=== PATIENT | male | born 1975 | race Caucasian/White ===

== ENCOUNTER 2019-12-13 23:10 | Emergency (ER) | payer SELFPAY ==
[2019-12-13 23:11] VITALS: BP 140/84; PULSE 71; RESP 16; TEMP 36.7; O2SAT 100
--- NOTE | 2019-12-13 23:27 | ED.NAVMDI ---
HPI - Nausea/Vomiting/Diarrhea General Chief complaint: Nausea/Vomiting/Diarrhea Stated complaint: abd pain/vomiting Time Seen by Provider: 12/13/19 23:11 Source: patient and RN notes reviewed Mode of arrival: EMS Limitations: no limitations History of Present Illness HPI Narrative: Pt is a 44 y/o male who presents to the ED, via EMS from home, with c/o nausea and vomiting that began at 6:30 PM after dinner. Pt denies drinking EtOH at dinner tonight. He notes that he had some Gatorade and some coconut water. He states that he drink EtOH at 2 PM. Pt denies his sx being caused by EtOH. Pt reports vomiting 3 table spoons of bright red blood during one of his episodes. Pt notes that the following episodes streaked of blood before returning back to a brown color. Pt reports 10/10 constant epigastric ABD pain, but denies a fever, chills, diaphoresis, diarrhea, dysuria, and urinary retention. MD elicited complaint: nausea and vomiting Pertinent past history: alcohol abuse Onset (ago): hour(s) (5) Description of vomiting: blood-streaked (for a few episodes), bloody (for one episode) and other (brown in color) Associated nausea: Yes Associated abdominal pain: Yes Location of pain: epigastric Pain consistency: constant Severity: severe Pain scale (0-10): 10 Relieving factors: none Associated symptoms: denies other symptoms Treatment prior to arrival: none Related Data Allergies Allergy/AdvReac Type Severity Reaction Status Date / Time acetaminophen Allergy Unknown ITCHING Verified 12/13/19 23:17 ALL OVER hydrocodone Allergy Unknown ITCHING Verified 12/13/19 23:17 ALL OVER Review of Systems Review of Systems: All systems reviewed & are unremarkable except as noted in HPI and below Constitutional: Constitutional: Denies chills and Denies fever(s) Cardiovascular: Cardiovascular: Denies other (diaphoresis) Gastrointestinal: Gastrointestinal: Reports abdominal pain (epigastric), Denies diarrhea, Reports nausea, Reports vomiting and Reports hematemesis (for one episode of emesis) Genitourinary: Genitourinary: Denies dysuria and Denies other (urinary retention) PMFSH Past Medical History Medical History (Updated 12/14/19 @ 00:48 by Rocco Alexander MD) Anxiety Surgical History Surgical History (Updated 09/28/19 @ 21:54 by Cassandra Medina) Hx of appendectomy Social History Social History (Updated 12/14/19 @ 00:07 by Cassandra Medina) Smoking status: Smoker, status unknown Alcohol intake: current Alcohol use details: Pt has a hx of EtOH abuse. Substance use: current Substance use type: marijuana Last use: 09/28/19 Gender identity (if verbalized by the patient): Male Exam Const: General: well developed, alert, in distress moderate and uncomfortable Orientation/consciousness: patient oriented x3 HENMT: Head: normocephalic and atraumatic Ears: external ears normal General nose exam: Normal external nose present Mouth: Yes oropharynx normal and Yes moist mucous membranes Resp: Effort & Inspection: normal respiratory effort and able to speak in complete sentences Auscultation: clear to auscultation bilaterally Cardio: Rate: regular rate Rhythm: regular rhythm Heart sounds: no murmurs GI: GI Palp: Yes Soft to palpation, No Tenderness to palpation present (GI) and No Guarding due to palpation present (GI) Skin: General skin exam: normal color and no rashes or lesions noted Trauma: no lacerations or abrasions Wounds: no wounds Neuro: General: patient oriented x3 Speech: normal speech Extrem: General: normal to inspection and no clubbing, cyanosis or edema Course Course Emergency Course: Patient very belligerent while in the ER. He tore out multiple IVs. He would continue to wash himself in the sink when we would ask him to lay in a bed. Patient was resistant to following any nursing or physician directions. Patient was having dry heaving and discussed that the treatment would initially be
[2019-12-13] MEDS: SODIUM CHLORIDE 0.9% IV 1,000 ML 999 ML IV CONT (23:34)
[2019-12-13] MEDS: ONDANSETRON INJ 4 MG/2 ML VIAL IV PUSH (23:34)
[2019-12-13] MEDS: PANTOPRAZOLE SODIUM IV 40 MG VIAL IV PUSH (23:34)
[2019-12-13 23:35] LABS: Basophils Absolute Auto 0.1 K/mm3 (0.0-0.1); Basophils Percent Auto 0.4 % (0.2-1.2); Eosinophils Absolute Auto 0.2 K/mm3 (0-0.3); Eosinophils Percent Auto 1.2 % (0-4.4); Hematocrit 43.6 % (42.0-52.0); Hemoglobin 15.1 g/dL (14.0-18.0); Immature Granulocyte Absolute 0.09 K/mm3 (0.00-0.031); Immature Granulocyte Percent A 0.5 % (0-0.5); Lymphocytes Absolute Auto 1.34 K/mm3 (0.9-3.2); Mean Corpuscular HGB Conc 34.6 g/dl (32-36); Mean Corpuscular Hemoglobin 32.2 pg (26-34); Mean Platelet Volume 8.8 fl (7.4-10.4); Monocytes Absolute Auto 0.6 K/mm3 (0.1-0.6); Monocytes Percent Auto 3.6 % (2.6-8.5); Neutrophils Absolute Auto 14.5 K/mm3 (1.3-6.7); Neutrophils Percent Auto 86.3 % (45.5-73.1); Platelet Count Result 248 k/mm3 (150-375); Red Blood Count 4.69 M/mm3 (4.6-6.20); Red Cell Distribution Width 12.7 % (11.5-14.5); White Blood Count 16.8 K/mm3 (4.5-10.0)
[2019-12-13 23:44] LABS: Ethanol 79 mg/dL (<10)
[2019-12-13 23:48] LABS: Alanine Aminotransferase 16 U/L (4-50); Alkaline Phosphatase 72 U/L (38-126); Aspartate Amino Transferase 23 U/L (17-59); Bilirubin,Total 0.6 mg/dL (0.2-1.3); Blood Urea Nitrogen 15 mg/dL (9-20); Calcium 10.1 mg/dL (8.4-10.2); Carbon Dioxide 19 mmol/L (22-30); Chloride 103 mmol/L (98-107); Estimated CRCL calculation 155 ml/min; Estimated Glomerular Filt Rate > 60; Glucose 126 mg/dL (75-110); Lipase 194 U/L (23-300); Potassium 3.6 mmol/L (3.4-5.0); Sodium 142 mmol/L (137-145)
--- NOTE | 2019-12-14 00:08 | PC.NURSE ---
Patient continuously walking out of room stating, you guys have to help me, this pain is too bad I need pain meds. ELAINA Alexander is notified.
[2019-12-14 00:10] LABS: Add Urine Microscopic? YES; Appearance Urine Clear (Clear); Bilirubin Urine Negative (Negative); Blood Urine Negative (Negative); Color Urine Yellow (Yellow); Glucose Urine UA Negative (Negative); Ketones Urine 1+ mg/dL (Negative); Leukocyte Esterase Ur Negative LEU/UL (Negative); Mucus Urine Rare /lpf; Nitrate Urine Negative (Negative); Protein Urine 1+ mg/dL (Negative); RBC Urine 0-2 /hpf (0-2); Specific Grav Ur 1.018 (1.001-1.035); Squamous Epithelial Cell Urine Rare /hpf (Few); Urobilinogen Urine Negative mg/dL (<2.0); WBC Urine 0-3 /hpf
[2019-12-14] MEDS: HALOPERIDOL LACTATE 5 MG/ML VIAL IV PUSH (00:10)
--- NOTE | 2019-12-14 00:33 | PC.NURSE ---
Pt belligerent towards staff stating, I need pain medications or something or my anxiety. While in room, patient pouring sink water over himself stating it makes me feel better and I need you to give me a shower.
--- NOTE | 2019-12-14 00:45 | PC.NURSE ---
Patient approached nurses station to speak to ELAINA Alexander. Pt expressed concern to ELAINA Alexander that I need pain meds or something for my anxiety I just can't do this anymore. ELAINA Alexander privately discussed patient's lab results and other treatment with him. ELAINA Alexander stated that he would not be giving patient narcotic pain medications. While patient was in room, patient removed second IV, stating, I am going to another hospital, you guys don't fucking care about me. I am going across the street to call an ambulance or have my parents take me to another hospital because you guys don't give a shit about me. Unable to redirect patient at this time and patient refused to have this or any other RN place gauze over patient's d/c IV. Pt stated no I am leaving, I have my jacket to wrap my hand you guys aren't covering it for me. Patient was offered to sign AMA papers, but refused, and exited the ED in a steady gait and with jacket covering left hand to control bleeding.
== END 2019-12-14 01:05 | disposition left against medical advice (07) ==
PROVIDERS: Emergency Provider Emergency Medicine
DX: K29.00 Acute gastritis without bleeding (principal); R11.2 Nausea with vomiting, unspecified
CPT/HCPCS: 36415; 80053; 80307; 81001; 83690; 85025; 96361; 96374; 96375; 99284; C9113; J1630; J2405; J7030

== ENCOUNTER 2020-06-21 21:44 | Emergency (ER) | payer OTHER, SELFPAY ==
[2020-06-21 21:50] VITALS: BP 131/82; PULSE 88; RESP 18; TEMP 36.8; O2SAT 98
--- NOTE | 2020-06-21 22:11 | ED.AMS ---
HPI - Altered Mental Status General Chief Complaint: Altered Mental Status Stated Complaint: combative Time Seen by Provider: 06/21/20 22:10 History of Present Illness HPI narrative: FOund wandering in the street with no pants on. Combative. Suspected of intoxication. EMS attempted transport. He tried to open the ambulance doors while they were moving. He was given 4 mg of versed for sedation. On arrivla to the ED he is calmed slightly. He is still not helpful with the history. He is familiar to several of the nursing staff. They say that he has presented similarly in the past due to intoxication. Related Data Allergies Allergy/AdvReac Type Severity Reaction Status Date / Time acetaminophen Allergy Unknown ITCHING Verified 12/13/19 23:17 ALL OVER hydrocodone Allergy Unknown ITCHING Verified 12/13/19 23:17 ALL OVER Review of Systems Review of Systems: ROS unobtainable: Yes unobtainable due to mental status PMFSH Past Medical History Medical History Anxiety Surgical History Surgical History Hx of appendectomy Social History Social History Smoking status: Smoker, status unknown Alcohol intake: current Substance use: current Substance use type: marijuana Last use: 09/28/19 Gender identity (if verbalized by the patient): Male Exam Const: General: confusion Other: Combative HENMT: Head: normal to inspection Eyes: Pupils: Equal, round and reactive pupils present Resp: Effort & Inspection: normal respiratory effort Auscultation: clear to auscultation bilaterally Cardio: Rate: tachycardic Rhythm: regular rhythm GI: Inspection: non-distended GI Palp: Yes Soft to palpation Skin: General skin exam: normal color Other: diaphoretic Neuro: General: moves all extremities Cranial nerves: Yes Nystagmus present horizontal Speech: Abnormal speech present slurred Extrem: General: normal to inspection Psych: Appearance: disheveled Course Vital Signs Vital signs: Vital Signs Temperature 36.8 C 06/21/20 21:50 Pulse Rate 88 06/21/20 21:50 Respiratory Rate 18 06/21/20 21:50 Blood Pressure 131/82 06/21/20 21:50 Pulse Oximetry 98 06/21/20 21:50 Temperature 36.7 C 06/22/20 01:17 Pulse Rate 91 06/22/20 01:17 Respiratory Rate 20 06/22/20 01:17 Blood Pressure 135/76 06/22/20 01:17 Pulse Oximetry 99 06/22/20 01:17 MDM - Altered Mental Status MDM Narrative Medical decision making narrative: Ethanol likely not high enough to explain behavior. Apparently he did admit to the nurse that he smoke something as well. Mental status back t baseline. Stable gait prior to discharge. Differential Diagnosis Differential diagnosis: Likely alcoholic intoxication, delirium and hypoglycemia Medical Records Attestation: I reviewed the patient's medical records. Lab Data Attestation: I reviewed the patient's lab results. Result diagrams: 06/21/20 22:07 06/21/20 22:07 Labs: Lab Results 06/21/20 06/21/20 06/21/20 Range/Units 22:07 22:07 22:07 WBC 10.4 H (4.5-10.0) K/mm3 RBC 4.95 (4.6-6.20) M/mm3 Hgb 15.3 (14.0-18.0) g/dL Hct 45.4 (42.0-52.0) % MCV 91.7 (80-100) fl MCH 30.9 (26-34) pg MCHC 33.7 (32-36) g/dl RDW 13.2 (11.5-14.5) % Plt Count 280 (150-375) k/mm3 MPV 8.3 (7.4-10.4) fl Immature Gran % (Auto) 0.6 H (0-0.5) % Neut % (Auto) 76.1 H (45.5-73.1) % Lymph % (Auto) 15.8 L (18.3-44.2) % [place] % (Auto) 3.8 (2.6-8.5) % Eos % (Auto) 2.9 (0-4.4) % Baso % (Auto) 0.8 (0.2-1.2) % Lymph # (Auto) 1.64 (0.9-3.2) K/mm3 [place] # (Auto) 0.4 (0.1-0.6) K/mm3 Eos # (Auto) 0.3 (0-0.3) K/mm3 Baso # (Auto) 0.1 (0.0-0.1) K/mm3 Abs Immat Gran (auto) 0.06 H (0.00-0.031) K/mm3 Absolute Neuts
[2020-06-21 22:15] LABS: Basophils Absolute Auto 0.1 K/mm3 (0.0-0.1); Basophils Percent Auto 0.8 % (0.2-1.2); Eosinophils Absolute Auto 0.3 K/mm3 (0-0.3); Eosinophils Percent Auto 2.9 % (0-4.4); Hematocrit 45.4 % (42.0-52.0); Hemoglobin 15.3 g/dL (14.0-18.0); Immature Granulocyte Absolute 0.06 K/mm3 (0.00-0.031); Immature Granulocyte Percent A 0.6 % (0-0.5); Lymphocytes Absolute Auto 1.64 K/mm3 (0.9-3.2); Lymphocytes Percent Auto 15.8 % (18.3-44.2); Mean Corpuscular HGB Conc 33.7 g/dl (32-36); Mean Corpuscular Hemoglobin 30.9 pg (26-34); Mean Corpuscular Volume 91.7 fl (80-100); Mean Platelet Volume 8.3 fl (7.4-10.4); Monocytes Absolute Auto 0.4 K/mm3 (0.1-0.6); Monocytes Percent Auto 3.8 % (2.6-8.5); Neutrophils Absolute Auto 7.9 K/mm3 (1.3-6.7); Neutrophils Percent Auto 76.1 % (45.5-73.1); Platelet Count Result 280 k/mm3 (150-375); Red Blood Count 4.95 M/mm3 (4.6-6.20); Red Cell Distribution Width 13.2 % (11.5-14.5); White Blood Count 10.4 K/mm3 (4.5-10.0)
--- NOTE | 2020-06-21 22:17 | PC.NURSE ---
Seizure pads placed on side rails due to patient purposefully, violently hitting the back of his head on the side rail. Attempted to calm and re-direct patient with little success. notified
[2020-06-21] MEDS: HALOPERIDOL LACTATE 5 MG/ML VIAL IV PUSH (22:21)
[2020-06-21 22:24] LABS: Alanine Aminotransferase 12 U/L (4-50); Alkaline Phosphatase 97 U/L (38-126); Anion Gap 20.9 mmol/L (7-16); Aspartate Amino Transferase 24 U/L (17-59); Bilirubin,Total 0.6 mg/dL (0.2-1.3); Blood Urea Nitrogen 11 mg/dL (9-20); Calcium 9.3 mg/dL (8.4-10.2); Carbon Dioxide 21 mmol/L (22-30); Chloride 106 mmol/L (98-107); Estimated CRCL calculation 150 ml/min; Estimated Glomerular Filt Rate > 60; Glucose 130 mg/dL (75-110); Potassium 3.9 mmol/L (3.4-5.0); Sodium 144 mmol/L (137-145)
[2020-06-21 22:48] LABS: Amphetamine Screen Urine Negative (Negative); Barbiturate Screen Urine Negative (Negative); Benzodiazepines Screen Urine Positive (Negative); Cannabinoid Screen Urine Positive (Negative); Cocaine Screen Urine Negative (Negative); Methadone Screen Urine Negative (Negative); Opiate Screen Urine Negative (Negative); Phencyclidine Screen Urine Negative (Negative)
--- NOTE | 2020-06-21 23:09 | PC.NURSE ---
pt calm at this time, no resp distress. given icewater and blanket.
[2020-06-21 23:10] VITALS: BP 128/86; PULSE 84; RESP 16; O2SAT 98
[2020-06-21 23:21] LABS: Thyroid Stimulating Hormone 0.191 uIU/mL (0.465-4.680)
--- NOTE | 2020-06-21 23:38 | PC.NURSE ---
pt up ambulating to rest room, no distress, pt calm.
--- NOTE | 2020-06-22 00:18 | PC.NURSE ---
Margi in lab aware of Ethanol level add on.
[2020-06-22 00:39] LABS: Ethanol 139 mg/dL (<10)
[2020-06-22 01:17] VITALS: BP 135/76; PULSE 91; RESP 20; TEMP 36.7; O2SAT 99
== END 2020-06-22 01:17 | disposition home or self-care (01) ==
PROVIDERS: Emergency Provider Emergency Medicine
DX: F10.121 Alcohol abuse with intoxication delirium (principal); Y90.6 Blood alcohol level of 120-199 mg/100 ml
CPT/HCPCS: 36415; 51701; 80053; 80307; 84443; 85025; 96374; 96375; 99284; J1630; J2060

== ENCOUNTER 2021-02-28 01:11 | Emergency (ER) | payer OTHER, SELFPAY ==
[2021-02-28] VITALS (14 sets, daily range): BP systolic 110–180; BP diastolic 47–82; PULSE 70–83; RESP 15–31; O2SAT 95–100
--- NOTE | 2021-02-28 01:13 | PC.NURSE ---
Code purple called shortly after arriving to ED, patient in room acting belligerent, uncooperative, and aggressive towards PD and EMS.
[2021-02-28] MEDS: LORazepam INJ (*CRX) 2 MG/ML VIAL IM ×2 (01:15→01:33)
--- NOTE | 2021-02-28 01:15 | PC.NURSE ---
[facility] ERP [place] to administer 50 mg benadryl, 2 mg ativan, and 5 mg haloperidol. 0115 Benadryl administered IM R deltoid 0116 Ativan administered IM L deltoid 0117 Haloperidol administered IM R ventrogluteal
[2021-02-28 02:29] LABS: Basophils Percent Auto 0.4 % (0.2-1.2); Eosinophils Absolute Auto 0.1 K/mm3 (0-0.3); Hematocrit 38.5 % (42.0-52.0); Hemoglobin 13.2 g/dL (14.0-18.0); Immature Granulocyte Absolute 0.04 K/mm3 (0.00-0.031); Immature Granulocyte Percent A 0.4 % (0-0.5); Lymphocytes Absolute Auto 1.12 K/mm3 (0.9-3.2); Mean Corpuscular HGB Conc 34.3 g/dl (32-36); Mean Corpuscular Volume 93.4 fl (80-100); Mean Platelet Volume 8.5 fl (7.4-10.4); Monocytes Absolute Auto 0.4 K/mm3 (0.1-0.6); Monocytes Percent Auto 3.1 % (2.6-8.5); Neutrophils Absolute Auto 9.6 K/mm3 (1.3-6.7); Neutrophils Percent Auto 85.1 % (45.5-73.1); Platelet Count Result 200 k/mm3 (150-375); Red Blood Count 4.12 M/mm3 (4.6-6.20); Red Cell Distribution Width 12.9 % (11.5-14.5); White Blood Count 11.2 K/mm3 (4.5-10.0)
[2021-02-28 02:34] LABS: Alanine Aminotransferase 12 U/L (4-50); Albumin Level 4.5 g/dL (3.5-5.1); Alkaline Phosphatase 77 U/L (38-126); Anion Gap 11 mmol/L (8-16); Aspartate Amino Transferase 27 U/L (17-59); Bilirubin,Total 0.3 mg/dL (0.2-1.3); Blood Urea Nitrogen 13 mg/dL (9-20); Calcium 8.3 mg/dL (8.4-10.2); Carbon Dioxide 22 mmol/L (22-30); Chloride 108 mmol/L (98-107); Estimated Glomerular Filt Rate > 60; Glucose 108 mg/dL (75-110); Potassium 3.9 mmol/L (3.4-5.0); Sodium 141 mmol/L (137-145)
--- NOTE | 2021-02-28 02:34 | PC.NURSE ---
Patient moved to room 14 and placed on bed alarm for closer observation for fall prevention.
--- NOTE | 2021-02-28 02:41 | PC.NURSE ---
Patient attempting to urinate again.
[2021-02-28 02:43] LABS: Acetaminophen < 10 ug/mL (10-30); Ethanol 72 mg/dL (<10); Salicylate < 1.0 mg/dL (2-20)
--- NOTE | 2021-02-28 02:44 | PC.NURSE ---
spoke with poison control in regards to pt kratom 5 gram ingestion. poison control recommended carefully monitoring respiratory status, benzos and narcan for agitation and potential opiate-like side effects.
[2021-02-28 02:45] LABS: Amphetamine Screen Urine Negative (Negative); Barbiturate Screen Urine Negative (Negative); Benzodiazepines Screen Urine Negative (Negative); Cannabinoid Screen Urine Positive (Negative); Cocaine Screen Urine Negative (Negative); Methadone Screen Urine Negative (Negative); Opiate Screen Urine Negative (Negative); Phencyclidine Screen Urine Negative (Negative)
[2021-02-28 03:13] LABS: Add Urine Microscopic? YES; Appearance Urine Clear (Clear); Bilirubin Urine Negative (Negative); Blood Urine Negative (Negative); Color Urine Yellow (Yellow); Glucose Urine UA Negative (Negative); Ketones Urine 1+ mg/dL (Negative); Leukocyte Esterase Ur Negative LEU/UL (Negative); Mucus Urine Rare /lpf; Nitrate Urine Negative (Negative); Protein Urine Negative (Negative); Specific Grav Ur 1.023 (1.001-1.035); Squamous Epithelial Cell Urine Rare /hpf (Few); Urobilinogen Urine Negative mg/dL (<2.0); WBC Urine 0-3 /hpf
--- NOTE | 2021-02-28 04:01 | ED.GENADULT ---
HPI - General Adult General Chief complaint: Overdose Stated complaint: took 5G Kratom/n/v abd pain Time Seen by Provider: 02/28/21 01:17 Limitations: intoxication History of Present Illness HPI narrative: Patient is a 46-year-old gentleman who presents to the emergency department with chief complaint of altered mental status. Patient has history of cyclic vomiting syndrome and apparently today ingested a large amount of kratom. The patient became extremely agitated and also complaints that he had nausea and vomiting. Patient states that he just wants to be sedated as he normally needs to be after he develops his cyclic vomiting. Patient denies suicidal or homicidal ideation. History is limited due to intoxication Related Data Allergies Allergy/AdvReac Type Severity Reaction Status Date / Time acetaminophen Allergy Unknown ITCHING Verified 12/13/19 23:17 ALL OVER hydrocodone Allergy Unknown ITCHING Verified 12/13/19 23:17 ALL OVER Review of Systems Review of Systems: Narrative: A 10 system review of systems was completed on the patient and is negative except for what is stated in the HPI. Nursing and ancillary documentation was reviewed. [facility] Past Medical History Medical History (Updated 02/28/21 @ 04:42 by Chandler Levy MD) Anxiety Surgical History Surgical History Hx of appendectomy Social History Social History Smoking status: Smoker, status unknown Alcohol intake: current Substance use: current Substance use type: marijuana and other Last use: 09/28/19 Gender identity (if verbalized by the patient): Male Exam Narrative: Exam Narrative: GENERAL: Well-appearing, well-nourished, and in no acute distress. HEAD: Normocephalic, atraumatic. EYES: PERRLA and EOMI. ENT: Nares clear, no rhinorrhea or epistaxis. Mucous membranes moist. NECK: Supple. CHEST: Clear to auscultation. No respiratory distress. HEART: Regular rate and rhythm. No murmur heard. Normal peripheral pulses. ABDOMEN: Soft, nontender, nondistended, normal active bowel sounds. EXTREMITIES: Normal range of motion. No edema. SKIN: Warm, dry, no rash. NEURO: No focal deficits. Patient is alert and agitated appears acutely intoxicated. PSYCH: Normal mood and affect. Course Vital Signs Vital signs: Vital Signs Pulse Rate 74 02/28/21 01:12 Respiratory Rate 31 H 02/28/21 01:12 Blood Pressure 110/59 L 02/28/21 01:12 Pulse Oximetry 100 02/28/21 01:12 Pulse Rate 74 02/28/21 04:15 Respiratory Rate 20 02/28/21 04:15 Blood Pressure 139/67 02/28/21 03:47 Pulse Oximetry 96 02/28/21 04:15 Medical Decision Making Vital Signs Vital Signs: Vital Signs Pulse Rate 74 02/28/21 01:12 Respiratory Rate 31 H 02/28/21 01:12 Blood Pressure 110/59 L 02/28/21 01:12 Pulse Oximetry 100 02/28/21 01:12 Pulse Rate 74 02/28/21 04:15 Respiratory Rate 20 02/28/21 04:15 Blood Pressure 139/67 02/28/21 03:47 Pulse Oximetry 96 02/28/21 04:15 Lab Data Result diagrams: 02/28/21 02:13 02/28/21 02:12 Labs: Lab Results 02/28/21 02/28/21 02/28/21 Range/Units 02:11 02:12 02:13 WBC 11.2 H (4.5-10.0) K/mm3 RBC 4.12 L (4.6-6.20) M/mm3 Hgb 13.2 L (14.0-18.0) g/dL Hct 38.5 L (42.0-52.0) % MCV 93.4 (80-100) fl MCH 32.0 (26-34) pg MCHC 34.3 (32-36) g/dl RDW 12.9 (11.5-14.5) % Plt Count 200 (150-375) k/mm3 MPV 8.5 (7.4-10.4) fl Immature Gran % (Auto) 0.4 (0-0.5) % Neut % (Auto) 85.1 H (45.5-73.1) % Lymph % (Auto) 10.0 L (18.3-44.2) % [place] % (Auto) 3.1 (2.6-8.5) % Eos % (Auto) 1.0 (0-4.4) % Baso % (Auto) 0.4 (0.2-1.2) % Lymph # (Auto) 1.12 (0.9-3.2) K/mm3 [place] # (Auto) 0.4 (0.1-0.6) K/mm3 Eos # (Auto) 0.1 (0-0.3) K/mm3 Baso # (A
[2021-02-28 04:26] LABS: Lipase 87 U/L (23-300)
== END 2021-02-28 04:53 | disposition home or self-care (01) ==
PROVIDERS: Emergency Provider Emergency Medicine
DX: F19.10 Other psychoactive substance abuse, uncomplicated (principal); R11.15 Cyclical vomiting syndrome unrelated to migraine
CPT/HCPCS: 36415; 80053; 80307; 81001; 83690; 85025; 96372; 99284; J1200; J1630; J2060

== ENCOUNTER 2021-07-13 11:31 | Emergency (ER) | payer OTHER, SELFPAY ==
[2021-07-13 11:36] VITALS: BP 124/55; PULSE 81; RESP 16; TEMP 36.8; O2SAT 100
--- NOTE | 2021-07-13 11:49 | ED.DIZZY ---
HPI - Dizziness General Chief Complaint: Dizziness Stated Complaint: DIZZY Time Seen by Provider: 07/13/21 11:49 Source: patient and RN notes reviewed Mode of arrival: ambulatory Limitations: no limitations History of Present Illness HPI Narrative: 46-year-old male presents to the [facility] with complaints of dizziness. Patient states that he woke up went to the gym and states the dizziness has not gotten any better. Reports some intermittent blurry vision. Denies any chest pain or shortness of breath. Denies any abdominal pain, nausea, vomiting. Denies any headaches Related Data Allergies Allergy/AdvReac Type Severity Reaction Status Date / Time acetaminophen Allergy Unknown ITCHING Verified 12/13/19 23:17 ALL OVER hydrocodone Allergy Unknown ITCHING Verified 12/13/19 23:17 ALL OVER Review of Systems Review of Systems: All systems reviewed & are unremarkable except as noted in HPI and below Constitutional: Constitutional: Reports no additional constitutional complaints, Denies chills and Denies fever(s) Eyes: Eyes: Reports as per HPI, Reports change in vision (Intermittent blurry vision) and Denies photophobia ENT: Reports as per HPI, Denies dysphagia, Reports dizziness, Denies epistaxis and Denies sore throat Cardiovascular: Cardiovascular: Reports no additional cardiovascular complaints, Denies chest pain, Denies rapid heart rate and Denies slow heart rate Respiratory: Respiratory: Reports no additional respiratory complaints, Denies cough and Denies dyspnea Gastrointestinal: Gastrointestinal: Reports no additional gastrointestinal complaints, Denies abdominal pain, Denies nausea and Denies vomiting Genitourinary: Genitourinary: Reports no additional male genitourinary complaints Musculoskeletal: Musculoskeletal: Reports no additional musculoskeletal complaints, Denies back pain, Denies myalgias, Denies joint swelling and Denies muscle cramps Integumentary/Breasts: Skin/Breast: Reports system reviewed and no additional complaints, except as docu Neurologic: Reports as per HPI, Denies confusion, Reports dizziness, Denies syncope, Denies headache(s), Denies focal weakness, Denies numbness and Denies weakness Psychiatric: Psychiatric: Reports as per HPI Allergic/Immunologic: Allergic/Immunologic: Reports no additional allergic/immunologic complaints PMFSH Past Medical History Medical History Anxiety Surgical History Surgical History Hx of appendectomy Social History Social History Smoking status: Smoker, status unknown Alcohol intake: current Alcohol use details: Pt has a hx of EtOH abuse. Substance use: current Substance use type: marijuana and other Last use: 09/28/19 Gender identity (if verbalized by the patient): Male Comments At the time of my signature, I reviewed and agree with the nursing past medical, surgical, social, and family history. There is no relevant family history pertinent to the patient complaint. Exam Const: General: healthy appearing, no acute distress and alert; No confusion Nutritional Appearance: well nourished Orientation/consciousness: patient oriented x3 Limitations: no limitations and No altered mental status HENMT: Head: normal to inspection Ears: TM's normal bilaterally, EAC's normal and external ear abnormal Eyes: Conjunctivae: conjunctivae normal Pupils: Equal, round and reactive pupils present Direct Ophthalmoscopy: no photophobia and No photophobia Neck: Neck: normal visual inspection, no lymphadenopathy and no meningeal signs Chest: Chest palpation & inspection: normal inspection of the chest Resp: Effort & Inspection: normal respiratory effort and no use of accessory muscles Auscultation: clear to auscultation bilaterally, no crackles, no rales, no rhonchi and no wheezes Cardio:
--- NOTE | 2021-07-13 11:52 | ECG_ITS ---
Measurements Intervals [place] Rate: 77 P: 57 ID: [id number] QRS: 20 QRSD: 146 T: 54 QT: 417 QTc: 473 Interpretive Statements SINUS RHYTHM VENTRICULAR PREMATURE COMPLEXES INTRAVENTRICULAR CONDUCTION DELAY BORDERLINE ECG Electronically Signed On 07-13-2021 12:26:27 CDT by Poli Anna D.O.
[2021-07-13 11:57] VITALS: BP 121/68; PULSE 76
[2021-07-13 11:58] VITALS: BP 128/77; PULSE 79
[2021-07-13 11:59] VITALS: BP 124/70; PULSE 84
[2021-07-13] MEDS: MECLIZINE HCL 25 MG TABLET PO (12:06)
== END 2021-07-13 12:43 | disposition home or self-care (01) ==
PROVIDERS: Emergency Provider Nurse Practitioner
DX: R42 Dizziness and giddiness (principal)
CPT/HCPCS: 93005; 99213; A9270; G0463

== ENCOUNTER 2021-07-14 13:42 | Emergency (ER) | payer OTHER, SELFPAY ==
[2021-07-14] VITALS (10 sets, daily range): BP systolic 109–145; BP diastolic 71–83; PULSE 61–82; RESP 13–23; TEMP 36.9; O2SAT 98–100
--- NOTE | ~2021-07-14 | CT_ITS ---
EXAMINATION: CTA brain carotid EXAM DATE: 07/14/2021 15:34 INDICATION: Vertigo. TECHNIQUE: Noncontrast head CT. Spiral CTA of the carotid arteries was performed with intravenous i njection 100 cc of Omnipaque 350. Axial, coronal, sagittal reformatted images reviewed. Additional r eformatted images created on dedicated 3-D workstation. NASCET comparable standard used to assess th e degree of arterial stenosis. Spiral CT angiogram cerebral arteries performed with the same intrave nous injection of contrast. Source images of the brain CTA transferred to dedicated workstation for 3 -D rotational image creation. Coronal, sagittal maximum intensity pixel images also reviewed. The d ose-length product (DLP) for this examination was 1912.78 mGy-cm. The exposure was tailored accordi ng to patient size, and iterative reconstruction (ASIR) was used as additional dose reduction techniq ue. There is no prior study for comparison. FINDINGS: No carotid plaque, 0% carotid stenosis bilaterally. The vertebral arteries are codominant. There is no carotid or vertebral basilar arterial dissection or fibromuscular dysplasia. There are n o cerebral artery aneurysms. There is symmetric cerebral artery arborization. The sagittal, transvers e and sigmoid sinuses enhance normally, no venous sinus thrombosis. Internal cerebral veins also enha nce normally. There is no acute intraparenchymal hemorrhage. No evidence of intraparenchymal brain mass lesion. N o evidence of acute infarction. There is no mass effect or midline shift. There is no obstructive hyd rocephalus suspected. There are no extra-axial collections. Incidental Findings: Moderate bilateral ethmoid mucoperiosteal thickening. IMPRESSION: 1. No acute carotid or intracranial findings. 2. Moderate ethmoid mucoperiosteal thickening. 3. Bilateral carotid 0% stenosis. Reviewed, dictated and finalized at location B.
--- NOTE | 2021-07-14 14:02 | ECG_ITS ---
Measurements Intervals [place] Rate: 72 P: 13 VA: 183 QRS: -8 QRSD: 150 T: 59 QT: 423 QTc: 465 Interpretive Statements SINUS RHYTHM INTRAVENTRICULAR CONDUCTION DELAY BASELINE ARTIFACT- II, III, AVR, AVL, AVF, V1, V3-V6 BORDERLINE ECG Electronically Signed On 07-14-2021 20:00:27 CDT by Poli Anna D.O.
--- NOTE | 2021-07-14 14:05 | ED.DIZZY ---
HPI - Dizziness General Chief Complaint: Dizziness Stated Complaint: dizzy Time Seen by Provider: 07/14/21 13:47 History of Present Illness HPI Narrative: Patient presents with dizziness. Patient versus dizziness has been present since . Reports his dizziness is progressively been getting worse. He was seen in urgent care given meclizine and appears to help the symptoms a little bit but they have persisted so he came to the ER for evaluation. He describes sensation feeling off balance. He is also reporting double vision that came on with his dizziness. He denies any focal areas of numbness or weakness. Denies any headache denies any fevers, cough, congestion. Related Data Allergies Allergy/AdvReac Type Severity Reaction Status Date / Time hydrocodone Allergy Unknown ITCHING Verified 07/14/21 14:07 ALL OVER alcohol Allergy Rash Verified 07/14/21 14:07 Review of Systems Review of Systems: CONSTITUTIONAL: Denies fever, chills, or sweats. EYES: Denies visual changes, redness, or discharge. ENT: Denies rhinorrhea, congestion, sore throat, or otalgia. CARDIOVASCULAR: Denies chest pain, palpitations, or edema. RESPIRATORY: Denies cough or dyspnea. GASTROINTESTINAL: Denies abdominal pain, nausea, vomiting, or diarrhea. GENITOURINARY: Denies dysuria or hematuria. SKIN: Denies rash or itching. MUSCULOSKELETAL: Denies back pain, joint pain, or myalgia. NEUROLOGIC: Denies headache, numbness, or weakness. PSYCHIATRIC: Denies anxiety or depression. All systems reviewed & are unremarkable except as noted in HPI and below PMFSH Past Medical History Medical History (Updated 07/14/21 @ 16:47 by Joe Markham MD) Anxiety Surgical History Surgical History Hx of appendectomy Social History Social History Smoking status: Smoker, status unknown Alcohol intake: current Alcohol use details: Pt has a hx of EtOH abuse. Substance use: current Substance use type: marijuana and other Last use: 09/28/19 Gender identity (if verbalized by the patient): Male Exam Narrative: GENERAL: Well-appearing, well-nourished, and in no acute distress. HEAD: Normocephalic, atraumatic. EYES: PERRLA and EOMI. ENT: Nares clear, no rhinorrhea or epistaxis. Mucous membranes moist. NECK: Supple. No masses. No JVD CHEST: Clear to auscultation. No respiratory distress. No wheezes rales or rhonchi HEART: Regular rate and rhythm. No murmur heard. Normal peripheral pulses. ABDOMEN: Soft, nontender, nondistended, normal active bowel sounds. EXTREMITIES: Normal range of motion. No edema. SKIN: Warm, dry, no rash. NEURO: Patient appears to have medial gaze palsy by laterally otherwise cranial nerves II through XII are intact. Patient has 5 out of 5 strength in all extremities sensation intact to light touch in all extremities. Slight overshooting with finger-nose on the left hand no dysdiadochokinesia. alert and oriented x3. PSYCH: Normal mood and affect. Course Reevaluation(s) Reevaluation #1: Patient continues to have dizziness with no other focal neurological deficits. Given persistence of symptoms primary concern is for central vertigo. Recommended patient be admitted for further diagnostic testing. 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 He reports he has no other family in the area and is unable to identify any other caregivers to assist his mom while he is in the hospital. Patient is refusing admission Date: 07/14/21 Time: 16:44 Vital Signs Vital signs: Vital Signs Temperature 36.9 C 07/14/21 13:46 Pulse Rate 74 07/14/21 13:46 Respiratory Rate 20 07/14/21 13:46 Blood Pressure 109/71 07/14/21 13:46 Pulse Oximetry 98 07/14/21 13:46 Temperature 36.9 C 07/14/21 13:46 Pulse Rate 74 07/14/21 17:03
[2021-07-14 14:17] LABS: Basophils Absolute Auto 0.1 K/mm3 (0.0-0.1); Basophils Percent Auto 0.6 % (0.2-1.2); Eosinophils Absolute Auto 0.4 K/mm3 (0-0.3); Eosinophils Percent Auto 4.7 % (0-4.4); Hematocrit 43.5 % (42.0-52.0); Hemoglobin 14.8 g/dL (14.0-18.0); Immature Granulocyte Absolute 0.02 K/mm3 (0.00-0.031); Immature Granulocyte Percent A 0.3 % (0-0.5); Lymphocytes Absolute Auto 2.28 K/mm3 (0.9-3.2); Mean Corpuscular Hemoglobin 31.7 pg (26-34); Mean Corpuscular Volume 93.1 fl (80-100); Mean Platelet Volume 8.9 fl (7.4-10.4); Monocytes Absolute Auto 0.5 K/mm3 (0.1-0.6); Monocytes Percent Auto 6.5 % (2.6-8.5); Neutrophils Absolute Auto 4.6 K/mm3 (1.3-6.7); Neutrophils Percent Auto 58.9 % (45.5-73.1); Platelet Count Result 208 k/mm3 (150-375); Red Blood Count 4.67 M/mm3 (4.6-6.20); Red Cell Distribution Width 12.8 % (11.5-14.5); White Blood Count 7.9 K/mm3 (4.5-10.0)
[2021-07-14 14:25] LABS: Alanine Aminotransferase 13 U/L (4-50); Albumin Level 4.5 g/dL (3.5-5.1); Alkaline Phosphatase 80 U/L (38-126); Anion Gap 10 mmol/L (8-16); Aspartate Amino Transferase 21 U/L (17-59); Bilirubin,Total 0.7 mg/dL (0.2-1.3); Blood Urea Nitrogen 9 mg/dL (9-20); Calcium 9.2 mg/dL (8.4-10.2); Carbon Dioxide 23 mmol/L (22-30); Chloride 107 mmol/L (98-107); Estimated CRCL calculation 110 ml/min; Estimated Glomerular Filt Rate > 60; Glucose 101 mg/dL (65-110); Potassium 3.8 mmol/L (3.4-5.0); Sodium 140 mmol/L (137-145)
[2021-07-14] MEDS: SODIUM CHLORIDE 0.9% IV 1,000 ML 999 ML IV CONT (14:41)
[2021-07-14 14:48] LABS: Add Urine Microscopic? YES; Appearance Urine Clear (Clear); Bilirubin Urine 1+ (Negative); Blood Urine Negative (Negative); Color Urine Yellow (Yellow); Glucose Urine UA Negative (Negative); Ketones Urine Trace mg/dL (Negative); Leukocyte Esterase Ur Trace LEU/UL (Negative); Mucus Urine Rare /lpf; Nitrate Urine Negative (Negative); Protein Urine Negative (Negative); Specific Grav Ur 1.018 (1.001-1.035); Squamous Epithelial Cell Urine Rare /hpf (Few); WBC Urine 0-3 /hpf
[2021-07-14 15:03] LABS: Amphetamine Screen Urine Negative (Negative); Barbiturate Screen Urine Negative (Negative); Benzodiazepines Screen Urine Negative (Negative); Cannabinoid Screen Urine Positive (Negative); Cocaine Screen Urine Negative (Negative); Methadone Screen Urine Negative (Negative); Opiate Screen Urine Negative (Negative); Phencyclidine Screen Urine Negative (Negative)
[2021-07-14 15:05] LABS: Ethanol < 10 mg/dL (<10)
--- NOTE | 2021-07-14 15:21 | PC.NURSE ---
Pt off floor to radiology
[2021-07-14 15:37] LABS: Acetaminophen < 10 ug/mL (10-30); Ammonia < 9 umol/L (9-30); Ethanol < 10 mg/dL (<10); Salicylate < 1.0 mg/dL (2-20)
== END 2021-07-14 16:55 | disposition home or self-care (01) ==
PROVIDERS: Emergency Provider Emergency Medicine
DX: R42 Dizziness and giddiness (principal); I45.9 Conduction disorder, unspecified
CPT/HCPCS: 36415; 70496; 70498; 80053; 80307; 81001; 82140; 85025; 93005; 96360; 99284; J7030; Q9967

== ENCOUNTER 2021-07-16 07:52 | Emergency (ER) | payer OTHER, SELFPAY ==
--- NOTE | ~2021-07-16 | XR_ITS ---
EXAMINATION: XR chest 1V portable INDICATION: Dizziness and diplopia TECHNIQUE: Portable AP chest at 0952 hours COMPARISON: 03/16/2019 FINDINGS: The lungs are free of acute opacities. There is no pleural effusion or pneumothorax. The ca rdiomediastinal silhouette is normal. IMPRESSION: 1. No acute cardiopulmonary abnormality. Reviewed, dictated and finalized at location A.
[2021-07-16 08:05] VITALS: BP 131/75; PULSE 85; RESP 16; TEMP 36.7; O2SAT 98
--- NOTE | 2021-07-16 09:46 | ED.GENADULT ---
HPI - General Adult General Chief complaint: Unspecified Stated complaint: shaking Time Seen by Provider: 07/16/21 08:28 Source: patient Mode of arrival: ambulatory Limitations: no limitations History of Present Illness HPI narrative: Patient drove himself to the emergency room complaining of vision abnormality and dizziness. Patient is healthy otherwise, does not take medicine, smokes occasionally, uses marijuana occasionally, denies drinking. Is telling me that he developed dizziness and inability to stand or walk started 6 days ago, went to urgent care then came to our emergency room, the dizziness is is gradually getting better today was able to drive himself to the emergency room but patient complaining of blurry vision when he looks at any object further 1 foot away. Patient is telling me that he see me double next each other. Patient denies any fever, chills, nausea, vomiting, headache, chest pain, shortness of breath, tingling numbness or focal weakness Related Data Allergies Allergy/AdvReac Type Severity Reaction Status Date / Time hydrocodone Allergy Unknown ITCHING Verified 07/16/21 08:21 ALL OVER alcohol Allergy Rash Verified 07/16/21 08:21 Review of Systems Review of Systems: CONSTITUTIONAL: Denies fever, chills, or sweats. EYES: Denies visual changes, redness, or discharge. ENT: Denies rhinorrhea, congestion, sore throat, or otalgia. CARDIOVASCULAR: Denies chest pain, palpitations, or edema. RESPIRATORY: Denies cough or dyspnea. GASTROINTESTINAL: Denies abdominal pain, nausea, vomiting, or diarrhea. GENITOURINARY: Denies dysuria or hematuria. SKIN: Denies rash or itching. MUSCULOSKELETAL: Denies back pain, joint pain, or myalgia. NEUROLOGIC: Denies headache, numbness, or weakness. PSYCHIATRIC: Denies anxiety or depression. [facility] Past Medical History Medical History (Updated 07/16/21 @ 11:14 by Rufino Witt MD) Anxiety Surgical History Surgical History Hx of appendectomy Social History Social History Smoking status: Smoker, status unknown Alcohol intake: current Alcohol use details: Pt has a hx of EtOH abuse. Substance use: current Substance use type: marijuana and other Last use: 09/28/19 Gender identity (if verbalized by the patient): Male Exam Narrative: General appearance: Well-developed, well-nourished Skin: Normal color Head: Normocephalic, nontraumatic Eyes: Clear conjunctiva, pupils equal, reactive to light bilaterally, extraocular muscle intact, double vision when patient look all the way to the lateral visual field with both eyes open. No double vision if one of the eye is closed and the other one is open. ENT: Oropharynx normal, ears normal, nose normal Neck: Supple, nontender Chest and respiratory: Airway patent, no respiratory distress, no accessory muscle use Heart: Regular rate/rhythm Abdomen: Soft, nontender, no organomegaly, quiet bowel sounds Vascular: Normal peripheral pulses, normal capillary refill. Musculoskeletal: Normal range of motion, nontender back Neurologic: Alert and oriented ?3, [employer] is normal as tested, no gross motor deficit Course Vital Signs Vital signs: Vital Signs Temperature 36.7 C 07/16/21 08:05 Pulse Rate 85 07/16/21 08:05 Respiratory Rate 16 07/16/21 08:05 Blood Pressure 131/75 07/16/21 08:05 Pulse Oximetry 98 07/16/21 08:05 Temperature 36.7 C 07/16/21 08:05 Pulse Rate 85 07/16/21 08:05 Respiratory Rate 16 07/16/21 08:05 Blood Pressure 131/75 07/16/21 08:05 Pulse Oximetry 98 07/16/21 08:05 Medical Decision
[2021-07-16 10:29] LABS: Add Urine Microscopic? YES; Appearance Urine Clear (Clear); Bilirubin Urine Negative (Negative); Blood Urine Negative (Negative); Color Urine Yellow (Yellow); Glucose Urine UA Negative (Negative); Ketones Urine Negative (Negative); Leukocyte Esterase Ur Trace LEU/UL (Negative); Mucus Urine Rare /lpf; Nitrate Urine Negative (Negative); Protein Urine Negative (Negative); Specific Grav Ur 1.013 (1.001-1.035); Squamous Epithelial Cell Urine Rare /hpf (Few); Urobilinogen Urine Negative mg/dL (<2.0); WBC Urine 0-3 /hpf
[2021-07-16 10:36] LABS: Basophils Percent Auto 0.5 % (0.2-1.2); Eosinophils Absolute Auto 0.2 K/mm3 (0-0.3); Eosinophils Percent Auto 2.9 % (0-4.4); Hemoglobin 14.6 g/dL (14.0-18.0); Immature Granulocyte Absolute 0.03 K/mm3 (0.00-0.031); Immature Granulocyte Percent A 0.4 % (0-0.5); Lymphocytes Absolute Auto 1.55 K/mm3 (0.9-3.2); Lymphocytes Percent Auto 20.2 % (18.3-44.2); Mean Corpuscular Hemoglobin 31.9 pg (26-34); Mean Corpuscular Volume 94.1 fl (80-100); Mean Platelet Volume 8.7 fl (7.4-10.4); Monocytes Absolute Auto 0.4 K/mm3 (0.1-0.6); Monocytes Percent Auto 5.6 % (2.6-8.5); Neutrophils Absolute Auto 5.4 K/mm3 (1.3-6.7); Neutrophils Percent Auto 70.4 % (45.5-73.1); Platelet Count Result 191 k/mm3 (150-375); Red Blood Count 4.57 M/mm3 (4.6-6.20); Red Cell Distribution Width 12.8 % (11.5-14.5); White Blood Count 7.7 K/mm3 (4.5-10.0)
[2021-07-16 10:50] LABS: Amphetamine Screen Urine Negative (Negative); Barbiturate Screen Urine Negative (Negative); Benzodiazepines Screen Urine Negative (Negative); Cannabinoid Screen Urine Positive (Negative); Cocaine Screen Urine Negative (Negative); Methadone Screen Urine Negative (Negative); Opiate Screen Urine Negative (Negative); Phencyclidine Screen Urine Negative (Negative)
[2021-07-16 10:52] LABS: INR 0.9; Prothrombin Time 12.5 Seconds (11.1-14.7)
[2021-07-16 10:53] LABS: Partial Thromboplastin Time 26.9 SECONDS (22.3-36.8)
[2021-07-16 10:54] LABS: Alanine Aminotransferase 12 U/L (4-50); Albumin Level 4.6 g/dL (3.5-5.1); Alkaline Phosphatase 80 U/L (38-126); Anion Gap 10 mmol/L (8-16); Aspartate Amino Transferase 22 U/L (17-59); Bilirubin,Total 0.6 mg/dL (0.2-1.3); Blood Urea Nitrogen 10 mg/dL (9-20); Calcium 8.9 mg/dL (8.4-10.2); Carbon Dioxide 23 mmol/L (22-30); Chloride 107 mmol/L (98-107); Estimated CRCL calculation 114 ml/min; Estimated Glomerular Filt Rate > 60; Glucose 97 mg/dL (65-110); Potassium 4.3 mmol/L (3.4-5.0); Sodium 140 mmol/L (137-145)
[2021-07-16 11:20] VITALS: BP 123/84; PULSE 76; RESP 16; O2SAT 100
== END 2021-07-16 11:20 | disposition home or self-care (01) ==
PROVIDERS: Emergency Provider Emergency Medicine
DX: R42 Dizziness and giddiness (principal); H53.2 Diplopia; F17.200 Nicotine dependence, unspecified, uncomplicated
CPT/HCPCS: 36415; 71045; 80053; 80307; 81001; 85025; 85610; 85730; 99283

== ENCOUNTER 2021-07-27 07:38 | Emergency (ER) | payer OTHER, SELFPAY ==
[2021-07-27 07:47] VITALS: BP 116/77; PULSE 72; RESP 14; TEMP 36.6; O2SAT 99
--- NOTE | 2021-07-27 07:50 | ECG_ITS ---
Measurements Intervals [place] Rate: 69 P: -50 [place]: 153 QRS: 65 QRSD: 110 T: 64 QT: 382 QTc: 411 Interpretive Statements SINUS RHYTHM INTRAVENTRICULAR CONDUCTION DELAY BASELINE ARTIFACT- V5 BORDERLINE ECG Electronically Signed On 07-27-2021 11:23:36 CDT by Poli Anna D.O.
[2021-07-27 08:11] LABS: Basophils Absolute Auto 0.1 K/mm3 (0.0-0.1); Basophils Percent Auto 0.8 % (0.2-1.2); Eosinophils Absolute Auto 0.4 K/mm3 (0-0.3); Eosinophils Percent Auto 7.2 % (0-4.4); Hematocrit 39.1 % (42.0-52.0); Hemoglobin 13.4 g/dL (14.0-18.0); Immature Granulocyte Absolute 0.02 K/mm3 (0.00-0.031); Immature Granulocyte Percent A 0.3 % (0-0.5); Lymphocytes Absolute Auto 1.65 K/mm3 (0.9-3.2); Lymphocytes Percent Auto 26.8 % (18.3-44.2); Mean Corpuscular HGB Conc 34.3 g/dl (32-36); Mean Corpuscular Hemoglobin 32.4 pg (26-34); Mean Corpuscular Volume 94.7 fl (80-100); Mean Platelet Volume 8.6 fl (7.4-10.4); Monocytes Absolute Auto 0.6 K/mm3 (0.1-0.6); Monocytes Percent Auto 10.2 % (2.6-8.5); Neutrophils Absolute Auto 3.4 K/mm3 (1.3-6.7); Neutrophils Percent Auto 54.7 % (45.5-73.1); Platelet Count Result 196 k/mm3 (150-375); Red Blood Count 4.13 M/mm3 (4.6-6.20); White Blood Count 6.2 K/mm3 (4.5-10.0)
[2021-07-27 08:20] LABS: Anion Gap 11 mmol/L (8-16); Blood Urea Nitrogen 14 mg/dL (9-20); Calcium 8.8 mg/dL (8.4-10.2); Carbon Dioxide 22 mmol/L (22-30); Chloride 107 mmol/L (98-107); Estimated CRCL calculation 132 ml/min; Estimated Glomerular Filt Rate > 60; Glucose 100 mg/dL (65-110); Sodium 140 mmol/L (137-145)
[2021-07-27 08:23] LABS: INR 0.9; Partial Thromboplastin Time 28.4 SECONDS (22.3-36.8); Prothrombin Time 12.4 Seconds (11.1-14.7)
[2021-07-27 08:30] VITALS: BP 102/56; PULSE 64; RESP 14; O2SAT 99
[2021-07-27 08:32] LABS: Troponin I < 0.012 ng/mL (0.000-0.034)
--- NOTE | 2021-07-27 09:06 | ED.GENADULT ---
HPI - General Adult General Chief complaint: Anxiety Stated complaint: heart racing Time Seen by Provider: 07/27/21 09:05 Source: patient Mode of arrival: ambulatory Limitations: no limitations History of Present Illness HPI narrative: 46 years old white male presented to the ED with palpitation started over the last 24 hours. Currently patient denying any symptoms. Patient denies any fever, chills, nausea, vomiting. Patient have a lot of stress lately. History of anxiety, used to be on medication in the past, Related Data Allergies Allergy/AdvReac Type Severity Reaction Status Date / Time hydrocodone Allergy Unknown ITCHING Verified 07/16/21 08:21 ALL OVER alcohol Allergy Rash Verified 07/16/21 08:21 Review of Systems Review of Systems: CONSTITUTIONAL: Denies fever, chills, or sweats. EYES: Denies visual changes, redness, or discharge. ENT: Denies rhinorrhea, congestion, sore throat, or otalgia. CARDIOVASCULAR: Denies chest pain, palpitations, or edema. RESPIRATORY: Denies cough or dyspnea. GASTROINTESTINAL: Denies abdominal pain, nausea, vomiting, or diarrhea. GENITOURINARY: Denies dysuria or hematuria. SKIN: Denies rash or itching. MUSCULOSKELETAL: Denies back pain, joint pain, or myalgia. NEUROLOGIC: Denies headache, numbness, or weakness. PSYCHIATRIC: Denies anxiety or depression. PMFSH Past Medical History Medical History Anxiety Surgical History Surgical History Hx of appendectomy Social History Social History Smoking status: Smoker, status unknown Alcohol intake: current Alcohol use details: Pt has a hx of EtOH abuse. Substance use: current Substance use type: marijuana and other Last use: 09/28/19 Gender identity (if verbalized by the patient): Male Exam Narrative: General appearance: Well-developed, well-nourished Skin: Normal color Head: Normocephalic, nontraumatic Eyes: Clear conjunctiva ENT: Oropharynx normal, ears normal, nose normal Neck: Supple, nontender Chest and respiratory: Airway patent, no respiratory distress, no accessory muscle use Heart: Regular rate/rhythm Abdomen: Soft, nontender, no organomegaly, quiet bowel sounds Vascular: Normal peripheral pulses, normal capillary refill. Musculoskeletal: Normal range of motion, nontender back Neurologic: Alert and oriented ?3, [employer] is normal as tested, no gross motor deficit Course Course Emergency Course: Stable Vital Signs Vital signs: Vital Signs Temperature 36.6 C 07/27/21 07:47 Pulse Rate 72 07/27/21 07:47 Respiratory Rate 14 07/27/21 07:47 Blood Pressure 116/77 07/27/21 07:47 Pulse Oximetry 99 07/27/21 07:47 Temperature 36.6 C 07/27/21 07:47 Pulse Rate 72 07/27/21 07:47 Respiratory Rate 14 07/27/21 07:47 Blood Pressure 116/77 07/27/21 07:47 Pulse Oximetry 99 07/27/21 07:47 Medical Decision Making MDM Narrative Medical decision making narrative: Palpitation, anxiety-like symptoms are my concern. Differential Diagnosis Differential Diagnosis: Anxiety, palpitation, electrolyte imbalance Vital Signs Vital Signs: Vital Signs Temperature 36.6 C 07/27/21 07:47 Pulse Rate 72 07/27/21 07:47 Respiratory Rate 14 07/27/21 07:47 Blood Pressure 116/77 07/27/21 07:47 Pulse Oximetry 99 07/27/21 07:47 Temperature 36.6 C 07/27/21 07:47 Pulse Rate 72 07/27/21 07:47 Respiratory Rate 14 07/27/21 07:47 Blood Pressure 116/77 07/27/21 07:47 Pulse Oximetry 99 07/27/21 07:47 Lab Data Result diagrams:
[2021-07-27 09:37] VITALS: BP 117/66; PULSE 57; RESP 14; O2SAT 98
[2021-07-27 10:18] VITALS: BP 106/74; PULSE 58; RESP 17; O2SAT 98
== END 2021-07-27 10:20 | disposition home or self-care (01) ==
PROVIDERS: Emergency Provider Emergency Medicine
DX: R00.2 Palpitations (principal); F41.9 Anxiety disorder, unspecified
CPT/HCPCS: 36415; 80048; 84484; 85025; 85610; 85730; 93005; 99284

== ENCOUNTER 2021-08-04 12:22 | Emergency (ER) | payer OTHER, SELFPAY ==
[2021-08-04 12:28] VITALS: BP 137/77; PULSE 78; RESP 20; TEMP 36.9; O2SAT 98
[2021-08-04 12:50] VITALS: BP 129/76; PULSE 63; RESP 18; O2SAT 100
--- NOTE | 2021-08-04 12:54 | ECG_ITS ---
Measurements Intervals [place] Rate: 60 P: -47 [place]: 179 QRS: 25 QRSD: 118 T: 37 QT: 437 QTc: 438 Interpretive Statements SINUS RHYTHM INTRAVENTRICULAR CONDUCTION DELAY BASELINE ARTIFACT- I, III, AVR, AVL, AVF BORDERLINE ECG Electronically Signed On 08-04-2021 13:16:43 CDT by Poli Anna D.O.
--- NOTE | 2021-08-04 13:20 | ED.ANXIETY ---
HPI - Anxiety General Chief Complaint: Anxiety Stated Complaint: panic attacks Time Seen by Provider: 08/04/21 12:55 Source: patient and RN notes reviewed Mode of arrival: ambulatory Limitations: no limitations History of Present Illness HPI narrative: This is 46 year old male who presents for evaluation of panic attacks. Patient reports has been having issues with intermittent palpitations. He states last night he ate a large dessert and he started having panic attacks. He reports having feeling of his heart pounding but his heart rate was normal. He states he did not feel well. He came to ER due to his panic attacks but he felt better once he got to waiting room. He denies any symptoms now. He denies headache, nausea, vomiting, chest pain, sob, cough, body aches, diarrhea. He was prescribed clonazepam 1 week ago . He has appointment with PCP this week. He has been to ER alot over the past 1 month. He states that his symptoms of dizziness, double vision resolved after seeing an eye doctor and prescribing glasses. Related Data Home Medications Medication Instructions Recorded Confirmed No Home Medications 08/04/21 08/04/21 Allergies Allergy/AdvReac Type Severity Reaction Status Date / Time hydrocodone Allergy Unknown ITCHING Verified 08/04/21 12:51 ALL OVER alcohol Allergy Rash Verified 08/04/21 12:51 Review of Systems Review of Systems: All systems reviewed & are unremarkable except as noted in HPI and below PMFSH Past Medical History Medical History (Updated 08/04/21 @ 13:23 by Michell Romano MD) Anxiety Surgical History Surgical History Hx of appendectomy Social History Social History Smoking status: Smoker, status unknown Alcohol intake: current Alcohol use details: Pt has a hx of EtOH abuse. Substance use: current Substance use type: does not use Last use: 09/28/19 Gender identity (if verbalized by the patient): Male Exam Narrative: GENERAL: Well-appearing, well-nourished, and in no acute distress. HEAD: Normocephalic, atraumatic EYES: PERRLA and EOMI, conjunctiva clear without discharge THROAT:Mucous membranes moist, Oropharynx normal without erythema, exudate, peritonsillar swelling or fluctuance NECK: Supple, without lymphadenopathy or mass RESPIRATORY: No respiratory distress, Airway patent, Respirations non-labored, Clear to auscultation without rales, rhonchi or wheeze HEART: Regular rate and rhythm. No murmur heard. Normal peripheral pulses. ABDOMEN: Soft, nontender, nondistended, normal active bowel sounds. No masses. No rebound or guarding, No organomegaly. EXTREMITIES: No edema, normal strength with full range of motion. SKIN: Warm, dry, normal color without rash NEURO: Alert and oriented x3. CN 2-12 grossly intact. No focal deficits. PSYCH: Normal mood and affect. Const: General: alert Course Reevaluation(s) Reevaluation #1: Patient reports he feels better and he is ready for discharge home. He has appointment this week for new primary care physician to evaluated him for his anxiety. I reviewed his previous visits. Date: 08/04/21 Time: 13:21 Vital Signs Vital signs: Vital Signs Temperature 98.4 F 08/04/21 12:28 Pulse Rate 78 08/04/21 12:28 Respiratory Rate 20 08/04/21 12:28 Blood Pressure 137/77 08/04/21 12:28 Pulse Oximetry 98 08/04/21 12:28 Temperature 98.4 F 08/04/21 12:28 Pulse Rate 62 08/04/21 13:30 Respiratory Rate 18 08/04/21 13:30 Blood Pressure 125/77 08/04/21 13:30 Pulse Oximetry 100 08/04/21 13:30 Discharge Plan Discharge Clinical Impression: Acute anxiety Patient Disposition: Home, Self-Care Condition: Stable Instructions: Stress (ED), Anxiety (ED) Additional Instructions: Please follow up with your primary care physician this week. Try relaxation techn
[2021-08-04 13:30] VITALS: BP 125/77; PULSE 62; RESP 18; O2SAT 100
== END 2021-08-04 13:31 | disposition home or self-care (01) ==
PROVIDERS: Emergency Provider General Practice
DX: F41.9 Anxiety disorder, unspecified (principal); I45.9 Conduction disorder, unspecified
CPT/HCPCS: 93005; 99283

== ENCOUNTER 2021-08-05 10:46 | Emergency (ER) | payer OTHER, SELFPAY ==
[2021-08-05 11:08] VITALS: BP 118/62; PULSE 66; RESP 16; TEMP 36.8; O2SAT 100
--- NOTE | 2021-08-05 11:10 | ED.ANXIETY ---
HPI - Anxiety General Chief Complaint: Anxiety Stated Complaint: panic attack Source: patient and RN notes reviewed Limitations: no limitations History of Present Illness HPI narrative: The patient, a smoker/nondrinker, presents with mood disorder. Patient states he has history of anxiety, for example when he was treated for his father's with some Xanax and Cymbalta a couple years ago. He has now moved in the area is caring for his mother who is on home hospice with end-stage CHF. He has been seen several times at the hospital with a diagnosis of anxiety disorder; the first time was last month when he exhibited diplopia and weakness for which he had noncontributory head CTA. Symptoms improved after seen by ophthalmology and given eyeglasses. He was seen once again for similar symptoms manifested by palpitations, shoulder tightness and treated with clonazepam, another time without any medication. Patient has some terminal insomnia and denies guilt, crying spells, loss of weight or concentration, SI/HI, hallucination, illicit drug use. Patient will be given reference for local PMD, [facility]. Related Data Home Medications Medication Instructions Recorded Confirmed No Home Medications 08/04/21 08/05/21 Allergies Allergy/AdvReac Type Severity Reaction Status Date / Time hydrocodone Allergy Unknown ITCHING Verified 08/05/21 11:17 ALL OVER alcohol Allergy Rash Verified 08/05/21 11:17 Review of Systems Review of Systems: General/Constitutional: No weight loss,fever Eyes: N0: Redness,discharge Ears/Nose/Throat: No: Epistaxis,ear discharge Respiratory: Denies: Hemoptysis Gastrointestinal: No Vomiting, Bleeding-rectal Skin: No Lumps, eruption Neurologic: No Focal Weakness,Sz Hematologic: Denies: Petechiae/Purpura Psychiatric: No: Suicida ideationl All Other Systems: Reviewed and Negative [facility] Past Medical History Medical History (Updated 08/06/21 @ 00:01 by Jenaro Savage) Anxiety Surgical History Surgical History Hx of appendectomy Social History Social History Smoking status: Smoker, status unknown Alcohol intake: current Alcohol use details: Pt has a hx of EtOH abuse. Substance use: current Substance use type: does not use Last use: 09/28/19 Gender identity (if verbalized by the patient): Male Comments At time of signature, agree with nursing past medical, surgical, social and family history. There is no relevant family history pertinent to the presenting complaint Exam Narrative: General Appearance: Well appearing, No distress EYE: PERRLA, Conjunctiva clear Ears: External ear normal Nose: Normal nose Mouth/Throat: Normal appearing, Normal lips Neck: Supple Respiratory: Airway patent, No respiratory distress Cardiovascular: RRR Abdomen: Soft, Non-tender, Musculoskeletal: Full ROM Skin: Warm, Dry Neurological: A&O x3, CN II-X intact Psychiatric: Normal mood, Normal affect now Course Vital Signs Vital signs: Vital Signs Temperature 98.3 F 08/05/21 11:08 Pulse Rate 66 08/05/21 11:08 Respiratory Rate 16 08/05/21 11:08 Blood Pressure 118/62 08/05/21 11:08 Pulse Oximetry 100 08/05/21 11:08 Temperature 98.3 F 08/05/21 11:08 Pulse Rate 66 08/05/21 11:08 Respiratory Rate 16 08/05/21 11:08 Blood Pressure 118/62 08/05/21 11:08 Pulse Oximetry 100 08/05/21 11:08 Discharge Plan Discharge Clinical Impression: Panic disorder, Insomnia Patient Disposition: Home, Self-Care Condition: Stable Instructions: Insomnia (ED) Additional Instructions: See Angelica MONGE in follow-up Prescriptions: No Action No Home Medications RF: 0 Follow-up/Referrals: UNKNOWN,DOCTOR [Primary Care Provider] -
== END 2021-08-05 12:22 | disposition home or self-care (01) ==
PROVIDERS: Emergency Provider Emergency Medicine
DX: F41.0 Panic disorder [episodic paroxysmal anxiety] (principal); G47.00 Insomnia, unspecified
CPT/HCPCS: 99211; G0463

== ENCOUNTER 2022-03-07 09:23 | Emergency (ER) | payer OTHER, SELFPAY ==
--- NOTE | 2022-03-07 09:28 | ED.SKABFB ---
HPI - Skin/Abscess/Foreign Bdy General Chief complaint: Skin/Abscess/Foreign Body Stated complaint: left elbow bump need meds Time Seen by Provider: 03/07/22 09:28 Source: patient and RN notes reviewed History of Present Illness HPI narrative: Patient is a 47-year-old male who presents the urgent care with complaints of needing med refills as well as a lump on his left elbow. Patient states that he ran out of his medication a couple days ago and has not yet found a primary care doctor. Patient was placed on the medications approximately 1 year ago from the emergency room and is still failed to find a PCP. Patient states he did schedule an appointment for March but is needing refills prior to his appointment. Patient also states that the left lump on his elbow it started approximately 2 to 3 days ago and he has been using an Jaxon wrap and ice. Denies of any pain or discomfort to the area. No other acute complaints. No acute distress noted. Patient aware of the plan of care. Some parts of this dictation were generated by voice recognition software and may contain typographical and/or grammatical inaccuracies. Related Data Home Medications Medication Instructions Recorded Confirmed paroxetine HCl 20 mg PO DAILY 03/07/22 03/07/22 Allergies Allergy/AdvReac Type Severity Reaction Status Date / Time hydrocodone Allergy Unknown ITCHING Verified 03/07/22 09:41 ALL OVER alcohol Allergy Rash Verified 03/07/22 09:41 Review of Systems Review of Systems: CONSTITUTIONAL: Denies fever, chills, or sweats. EYES: Denies visual changes, redness, or discharge. ENT: Denies rhinorrhea, congestion, sore throat, or otalgia. CARDIOVASCULAR: Denies chest pain, palpitations, or edema. RESPIRATORY: Denies cough or dyspnea. GASTROINTESTINAL: Denies abdominal pain, nausea, vomiting, or diarrhea. GENITOURINARY: Denies dysuria or hematuria. SKIN: reports a lump to the left elbow MUSCULOSKELETAL: Denies back pain, joint pain, or myalgia. NEUROLOGIC: Denies headache, numbness, or weakness. PSYCHIATRIC: Requesting medication refills for history of anxiety All other systems reviewed are negative, except as documented in HPI. [facility] Past Medical History Medical History (Updated 03/07/22 @ 09:49 by TERESITA Lamb) Anxiety Surgical History Surgical History Hx of appendectomy Social History Social History Smoking status: Smoker, status unknown Alcohol intake: current Alcohol use details: Pt has a hx of EtOH abuse. Substance use: current Substance use type: does not use Last use: 09/28/19 Gender identity (if verbalized by the patient): Male Comments At the time of my signature, I reviewed and agree with the nursing past medical, surgical, social, and family history. There is no relevant family history pertinent to the patient complaint. Exam Narrative: GENERAL: This is a well-nourished, well-developed patient, in no apparent distress. HEAD: normocephalic, atraumatic. EYES: PERRL. Sclera clear/white. Vision is grossly intact. EARS: External ears normal NOSE: External nose normal with no obvious nasal discharge, nares without redness, no rhinorrhea. THROAT: Mucous membranes moist NECK: Neck supple SKIN: warm, intact with no suspicious lesions or rash, good texture and turgor. NEURO: awake, alert, and oriented to person, place and time. There were no obvious focal neurologic abnormalities. EXTREMITIES: Mild nontender, nonerythemic, noninfectious left elbow bursitis. Positive strong left radial pulse with capillary refill less than 2 seconds. Range of motion to left upper extremity within normal limits. Course Course Level of Care: Express Care Visit Vital Signs Vital signs: Vital Signs Temperature 97.9 F 03/07/22 09:30 Pulse Rate 68 03/07/22 09:30 Respiratory Rate 20 03/07/22 09:30 Blood Pressure 1
[2022-03-07 09:30] VITALS: BP 127/67; PULSE 68; RESP 20; TEMP 36.6; O2SAT 97
== END 2022-03-07 09:56 | disposition home or self-care (01) ==
PROVIDERS: Emergency Provider Nurse Practitioner Family
DX: F41.9 Anxiety disorder, unspecified (principal); M70.32 Other bursitis of elbow, left elbow
CPT/HCPCS: 99213; G0463

== ENCOUNTER 2022-04-03 15:39 | Outpatient (CLI) | payer OTHER, SELFPAY ==
[2022-04-03 18:50] LABS: Hematocrit 40.9 % (42.0-52.0); Hemoglobin 13.5 g/dL (14.0-18.0); Mean Corpuscular Hemoglobin 31.6 pg (26-34); Mean Corpuscular Volume 95.8 fl (80-100); Mean Platelet Volume 8.9 fl (7.4-10.4); Platelet Count Result 221 k/mm3 (150-375); Red Blood Count 4.27 M/mm3 (4.6-6.20); Red Cell Distribution Width 12.8 % (11.5-14.5); White Blood Count 6.5 K/mm3 (4.5-10.0)
[2022-04-03 19:14] LABS: Alanine Aminotransferase 9 U/L (6-50); Albumin Level 4.4 g/dL (3.5-5.1); Alkaline Phosphatase 72 U/L (38-126); Anion Gap 10 mmol/L (8-16); Aspartate Amino Transferase 21 U/L (17-59); Bilirubin,Total 0.5 mg/dL (0.2-1.3); Blood Urea Nitrogen 10 mg/dL (9-20); Calcium 8.7 mg/dL (8.4-10.2); Carbon Dioxide 25 mmol/L (22-30); Chloride 105 mmol/L (98-107); Cholesterol 180 mg/dL (0-200); Estimated Glomerular Filt Rate > 60; Glucose 88 mg/dL (65-110); HDL Direct 67 mg/dL; Potassium 4.1 mmol/L (3.4-5.0); Sodium 140 mmol/L (137-145); Triglycerides 79 mg/dL (<150)
[2022-04-03 19:25] LABS: LDL Cholesterol Direct 77 mg/dL
[2022-04-03 20:17] LABS: Thyroid Stimulating Hormone Reflex 0.824 uIU/mL (0.465-4.68)
== END 2022-04-03 15:40 | disposition home or self-care (01) ==
PROVIDERS: PCP Family Medicine; Visit Provider Family Medicine
DX: Z00.00 Encounter for general adult medical examination without abnormal findings (principal); F41.9 Anxiety disorder, unspecified
CPT/HCPCS: 36415; 80053; 80061; 84443; 85027

== ENCOUNTER 2022-05-19 05:13 | Emergency (ER) | payer OTHER, SELFPAY ==
--- NOTE | ~2022-05-19 | CT_ITS ---
EXAMINATION: CT abdomen pelvis w con DATE: 05/19/2022 09:24 INDICATION: Abdominal pain. Nausea and vomiting. TECHNIQUE: Computed tomography (CT) of the abdomen and pelvis was performed with 100 CC Omnipaque 300 intravenous contrast. Automated exposure control and iterative reconstruction technique were employe d. Exam dose: 825.26 mGy-cm total exam DLP. COMPARISON: 09/28/2019 CT abdomen pelvis FINDINGS: The lung bases are clear. Normal heart size. No pericardial or pleural effusion. Liver, gallbladder, bile ducts, spleen, pancreas and pancreatic duct appear normal. Normal morphology of the adrenal glands. 2.5 x 5.5 mm nonobstructing lower pole left renal calculus. No other urinary tract calculus or hydroureteronephrosis is detected. No renal space occupying mass lesion is detected. Normal caliber of the abdominal aorta. No intraperitoneal or retroperitoneal or pelvic mass lesion or adenopathy or ascites. The urinary bladder is unremarkable. Prominent amount of fecal material in the colon. Focal distal sigmoid colon wall thickening and luminal narrowing is suggested. Colon workup is recomm ended by barium enema or colonoscopy if not recently performed. No intraperitoneal free air. Bilateral L5 pars interarticularis defects with grade 1 anterolisthesis at L5-S1. Moderately severe d egenerative disc disease at L5-S1. Diffuse idiopathic skeletal hyperostosis of the thoracic spine. IMPRESSION: Focal soft tissue thickening of the wall and luminal narrowing is suggested in the dista l sigmoid colon. Colon workup (barium enema or colonoscopy) is recommended if not recently performed. Prominent amount of fecal material in the colon. No bowel obstruction Nonobstructing lower pole left renal calculus Bilateral L5 pars interarticularis defects with associated grade 1 anterolisthesis at L5-S1 Moderately severe degenerative disc disease at L5-S1 Diffuse idiopathic skeletal hyperostosis of the thoracic spine Reviewed, dictated and finalized at [facility]. Reviewed, dictated and finalized at [facility]. IMPRESSION: Focal soft tissue thickening of the wall and luminal narrowing is suggested in the distal sigmoid colon. Colon workup (barium enema or colonoscop y) is recommended if not recently performed. Prominent amount of fecal material in the colon. No bowel obstruction Nonobstructing lower pole left renal calculus Bilateral L5 pars interarticularis defects with associated grade 1 anterolisthe sis at L5-S1 Moderately severe degenerative disc disease at L5-S1 Diffuse idiopathic skeletal hyperostosis of the thoracic spine
--- NOTE | 2022-05-19 05:21 | PC.NURSE ---
Pt voluntarily falling to knees and yelling in waiting room. Pt re directed to get off the floor and stop yelling. Pt pacing back and forth yelling about his pain.
--- NOTE | 2022-05-19 05:24 | PC.NURSE ---
Pt repeatedly banging head on triage desk stating that he is trying to knock himself out.
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
[2022-05-19 05:51] VITALS: BP 125/65; PULSE 62; RESP 17; O2SAT 100
[2022-05-19] MEDS: SODIUM CHLORIDE 0.9% IV 1,000 ML 999 ML IV CONT (06:04)
[2022-05-19] MEDS: METOCLOPRAMIDE HCL INJ 10 MG/2 ML VIAL IV PUSH (06:05)
[2022-05-19] MEDS: ONDANSETRON INJ 4 MG/2 ML VIAL IV PUSH (06:05)
[2022-05-19 06:12] LABS: Basophils Absolute Auto 0.1 K/mm3 (0.0-0.1); Basophils Percent Auto 0.6 % (0.2-1.2); Eosinophils Absolute Auto 0.3 K/mm3 (0-0.3); Eosinophils Percent Auto 2.2 % (0-4.4); Hematocrit 41.2 % (42.0-52.0); Hemoglobin 14.2 g/dL (14.0-18.0); Immature Granulocyte Absolute 0.05 K/mm3 (0.00-0.031); Immature Granulocyte Percent A 0.4 % (0-0.5); Lymphocytes Absolute Auto 1.56 K/mm3 (0.9-3.2); Lymphocytes Percent Auto 13.5 % (18.3-44.2); Mean Corpuscular HGB Conc 34.5 g/dl (32-36); Mean Corpuscular Hemoglobin 31.7 pg (26-34); Mean Platelet Volume 8.5 fl (7.4-10.4); Monocytes Absolute Auto 0.6 K/mm3 (0.1-0.6); Monocytes Percent Auto 4.7 % (2.6-8.5); Neutrophils Absolute Auto 9.1 K/mm3 (1.3-6.7); Neutrophils Percent Auto 78.6 % (45.5-73.1); Platelet Count Result 238 k/mm3 (150-375); Red Blood Count 4.48 M/mm3 (4.6-6.20); Red Cell Distribution Width 13.4 % (11.5-14.5); White Blood Count 11.6 K/mm3 (4.5-10.0)
--- NOTE | 2022-05-19 06:12 | ED.GENADULT ---
HPI - General Adult General Chief complaint: Abdominal Pain <Atul Espinosa MD - Last Filed: 05/19/22 19:17> Stated complaint: abd pain <Atul Espinosa MD - Last Filed: 05/19/22 19:17> Time Seen by Provider: 05/19/22 06:03 <Atul Espinosa MD - Last Filed: 05/19/22 19:17> History of Present Illness HPI narrative: 47-year-old male presenting to the emergency department for evaluation of persistent nausea and vomiting. Patient states he does have a prior history of cyclic vomiting. Patient states this occurs every few years. Patient states he began having this episode approximately 9 PM. Patient denies any THC use. <Atul Espinosa MD - Last Filed: 05/19/22 19:17> Related Data Allergies/adverse reactions: Allergies Allergy/AdvReac Type Severity Reaction Status Date / Time hydrocodone Allergy Unknown ITCHING Verified 05/19/22 05:51 ALL OVER alcohol Allergy Rash Verified 05/19/22 05:51 <Atul Espinosa MD - Last Filed: 05/19/22 19:17> Review of Systems Review of Systems: CONSTITUTIONAL: Denies fever, chills, or sweats. EYES: Denies visual changes, redness, or discharge. ENT: Denies rhinorrhea, congestion, sore throat, or otalgia. CARDIOVASCULAR: Denies chest pain, palpitations, or edema. RESPIRATORY: Denies cough or dyspnea. GASTROINTESTINAL: Nausea vomiting GENITOURINARY: Denies dysuria or hematuria. SKIN: Denies rash or itching. MUSCULOSKELETAL: Denies back pain, joint pain, or myalgia. NEUROLOGIC: Denies headache, numbness, or weakness. PSYCHIATRIC: Denies anxiety or depression. <Atul Espinosa MD - Last Filed: 05/19/22 19:17> [facility] Past Medical History Medical History: Medical History (Updated 05/19/22 @ 10:55 by Chel Levine MD) Anxiety <Atul Espinosa MD - Last Filed: 05/19/22 19:17> Surgical History Surgical History: Surgical History Hx of appendectomy <Atul Espinosa MD - Last Filed: 05/19/22 19:17> Family History Family History: Family History (Updated 04/02/22 @ 07:26 by Mile Maynard MA) Father Cancer Mother Alcohol abuse <Atul Espinosa MD - Last Filed: 05/19/22 19:17> Social History Social History: Social History Smoking status: Smoker, status unknown Alcohol intake: current Alcohol use details: Pt has a hx of EtOH abuse. Substance use: current Substance use type: does not use Last use: 09/28/19 Gender identity (if verbalized by the patient): Male <Atul Espinosa MD - Last Filed: 05/19/22 19:17> Exam Narrative: APPEARANCE: Well appearing, no pain, no distress, well-nourished. HEAD: normocephalic, atraumatic. EYES: PERRLA/EOMI, conjunctivae clear. NOSE: Normal no drainage NECK: Supple. No adenopathy, no masses. RESPIRATORY: Airway patent, respirations nonlabored. Clear to auscultation bilaterally, no rales, rhonchi, wheezing. CARDIOVASCULAR: Regular rate and rhythm without murmurs rubs or gallops. ABDOMINAL: Soft, nontender, nondistended, normal bowel sounds MUSCULOSKELETAL: Moves all extremities. Strength/ROM intact, No edema, No calf tenderness. NEURO: Alert. Cranial nerves II through XII intact. Grossly intact SKIN: Warm, dry. Normal Color <Atul Espinosa MD - Last Filed: 05/19/22 19:17> Course Course Emergency Course: Patient arrived to the emergency department complaining of extreme nausea and vomiting. Patient was treated with Zofran, Reglan, GI cocktail and morphine. Patient does have a mildly elevated lipase. At time of signout to Dr. Levine CT abdomen pelvis is pending. <Atul Espinosa MD - Last Filed: 05/19/22 19:17> Reevaluation(s) Reevaluation #1: more calm after haldol and ativan says colonscopy before but 20yrs ago so discussed needing another given distal colon narrowing on ct and getting urine now <Chel Levine MD - Last Filed:
[2022-05-19 06:22] LABS: Alanine Aminotransferase 14 U/L (6-50); Alkaline Phosphatase 90 U/L (38-126); Anion Gap 12 mmol/L (8-16); Aspartate Amino Transferase 26 U/L (17-59); Bilirubin,Total 0.6 mg/dL (0.2-1.3); Blood Urea Nitrogen 10 mg/dL (9-20); Calcium 9.1 mg/dL (8.4-10.2); Carbon Dioxide 21 mmol/L (22-30); Chloride 109 mmol/L (98-107); Estimated CRCL calculation 127 ml/min; Estimated Glomerular Filt Rate > 60; Glucose 108 mg/dL (65-110); Lipase 388 U/L (23-300); Potassium 3.7 mmol/L (3.4-5.0); Sodium 142 mmol/L (137-145)
[2022-05-19] MEDS: BELLADONNA ALK/PHENOB ELIX 10 ML, MAG HYDROX/ALUMINUM HYD/SIMETH 30 ML, LIDOCAINE HCL 2... PO (06:22)
[2022-05-19] MEDS: MORPHINE SULFATE (*CRX) 4 MG/ML INJ 8 MG IV PUSH (06:23)
--- NOTE | 2022-05-19 06:50 | PC.NURSE ---
Patient constantly yelling, stating I need more morphine!! I need help!! Go get the doctor, I need more morphine! This nurse informed patient that the doctor is aware and that he just received pain medication. Patient still continues to yell.
--- NOTE | 2022-05-19 07:30 | PC.NURSE ---
pt being uncooperative and disruptive to other p/t and in bed #3. CT attempted to scan but pt would not lay flat.
[2022-05-19] MEDS: LORazepam INJ (*CRX) 2 MG/ML VIAL 1 MG IV PUSH (07:51)
[2022-05-19] MEDS: HALOPERIDOL LACTATE 5 MG/ML VIAL 2.5 MG IM (08:02)
[2022-05-19 09:54] LABS: Appearance Urine Clear (Clear); Bilirubin Urine Negative (Negative); Blood Urine Negative (Negative); Color Urine Yellow (Yellow); Glucose Urine UA Negative (Negative); Ketones Urine 1+ mg/dL (Negative); Leukocyte Esterase Ur Negative LEU/UL (Negative); Nitrate Urine Negative (Negative); Protein Urine Trace mg/dL (Negative); Specific Grav Ur 1.015 (1.001-1.035); Urobilinogen Urine 0.2 mg/dL (<2.0)
[2022-05-19 10:04] LABS: Add Urine Microscopic? YES; Mucus Urine Rare /lpf
[2022-05-19 10:09] LABS: Amphetamine Screen Urine Negative (Negative); Barbiturate Screen Urine Negative (Negative); Benzodiazepines Screen Urine Negative (Negative); Cannabinoid Screen Urine Positive (Negative); Cocaine Screen Urine Negative (Negative); Methadone Screen Urine Negative (Negative); Opiate Screen Urine Positive (Negative); Phencyclidine Screen Urine Negative (Negative)
== END 2022-05-19 11:25 | disposition home or self-care (01) ==
PROVIDERS: Emergency Medicine; Emergency Provider Emergency Medicine; PCP Family Medicine
DX: R11.10 Vomiting, unspecified (principal); R10.9 Unspecified abdominal pain; F12.90 Cannabis use, unspecified, uncomplicated; R93.3 Abnormal findings on diagnostic imaging of other parts of digestive tract; N20.0 Calculus of kidney; M51.37 Other intervertebral disc degeneration, lumbosacral region; M48.10 Ankylosing hyperostosis [Forestier], site unspecified
CPT/HCPCS: 36415; 74177; 80053; 80307; 81001; 83690; 85025; 96361; 96372; 96374; 96375; 99284; A9270; J1630; J2060; J2270; J2405; J2765; J7030; Q9967

== ENCOUNTER 2022-08-28 19:14 | Emergency (ER) | payer OTHER, SELFPAY ==
[2022-08-28 19:39] VITALS: BP 145/73; PULSE 66; RESP 16; TEMP 35.8; O2SAT 100
== END 2022-08-28 20:01 | disposition left against medical advice (07) ==
PROVIDERS: PCP Family Medicine
DX: Z53.21 Procedure and treatment not carried out due to patient leaving prior to being seen by health care provider (principal)
CPT/HCPCS: 99199

== ENCOUNTER 2022-08-29 10:49 | Emergency (ER) | payer OTHER, SELFPAY ==
[2022-08-29 10:58] VITALS: BP 150/86; PULSE 86; RESP 13; TEMP 36.8; O2SAT 100
--- NOTE | 2022-08-29 11:22 | ECG_ITS ---
Measurements Intervals [place] Rate: 67 P: 41 ND: 150 QRS: 26 QRSD: 120 T: 45 QT: 406 QTc: 430 Interpretive Statements SINUS RHYTHM MODERATE INTRAVENTRICULAR CONDUCTION DELAY [110+ ms QRS DURATION] COMPARED TO ECG 08/04/2021 12:59:08 NO SIGNIFICANT CHANGES Electronically Signed On 08-29-2022 15:45:08 CDT by Vlad Padilla M.D.
--- NOTE | 2022-08-29 11:25 | ED.DIZZY ---
HPI - Dizziness General Chief Complaint: Dizziness Stated Complaint: dizziness Time Seen by Provider: 08/29/22 10:55 History of Present Illness HPI Narrative: 47-year-old male with history of anxiety presented to the emergency department for evaluation of cute onset of dizziness. Patient states when he got home from work he took a multivitamin that he believes contains approximately 100 mg of caffeine. Patient also did have a couple coffee. Patient states shortly after having the multivitamin he felt that he was having onset of dizziness. Patient states that this dizziness sensation started to make him feel anxious. Patient states that he was having some shaking of his hands. Patient denies any other complaints. Patient states since arriving to the emergency department that his symptoms have begun to improve. Yesterday patient was diagnosed with a kidney stone at outside hospital. Patient states that he feels he did pass the stone and is denying any associated flank pain at this time. Related Data Allergies Allergy/AdvReac Type Severity Reaction Status Date / Time hydrocodone Allergy Unknown ITCHING Verified 08/29/22 11:01 ALL OVER alcohol Allergy Rash Verified 08/29/22 11:01 Review of Systems Review of Systems: CONSTITUTIONAL: Denies fever, chills, or sweats. EYES: Denies visual changes, redness, or discharge. ENT: Denies rhinorrhea, congestion, sore throat, or otalgia. CARDIOVASCULAR: Denies chest pain, palpitations, or edema. RESPIRATORY: Denies cough or dyspnea. GASTROINTESTINAL: Denies abdominal pain, nausea, vomiting, or diarrhea. GENITOURINARY: Denies dysuria or hematuria. SKIN: Denies rash or itching. MUSCULOSKELETAL: Denies back pain, joint pain, or myalgia. NEUROLOGIC: See HPI PSYCHIATRIC: Anxiety PMFSH Past Medical History Medical History (Updated 08/29/22 @ 13:17 by Atul Espinosa MD) Anxiety Surgical History Surgical History Hx of appendectomy Family History Family History (Updated 04/02/22 @ 07:26 by Mile Maynard MA) Father Cancer Mother Alcohol abuse Social History Social History Smoking status: Smoker, status unknown Alcohol intake: current Alcohol use details: Pt has a hx of EtOH abuse. Substance use: current Substance use type: does not use Last use: 09/28/19 Gender identity (if verbalized by the patient): Male Exam Narrative: APPEARANCE: Well appearing, no pain, no distress, well-nourished. HEAD: normocephalic, atraumatic. EYES: PERRLA/EOMI, conjunctivae clear. NOSE: Normal no drainage NECK: Supple. No adenopathy, no masses. RESPIRATORY: Airway patent, respirations nonlabored. Clear to auscultation bilaterally, no rales, rhonchi, wheezing. CARDIOVASCULAR: Regular rate and rhythm without murmurs rubs or gallops. ABDOMINAL: Soft, nontender, nondistended, normal bowel sounds MUSCULOSKELETAL: Moves all extremities. Strength/ROM intact, No edema, No calf tenderness. NEURO: Alert. Cranial nerves II through XII intact. Grossly intact SKIN: Warm, dry. Normal Color Course Course Emergency Course: Patient continued to feel improved over time. Patient's labs are within normal limits. Patient was afebrile with no leukocytosis. Patient's electrolytes within normal limits. Patient's vitals are within normal limits. Vital Signs Vital signs: Vital Signs Temperature 98.3 F 08/29/22 10:58 Pulse Rate 86 08/29/22 10:58 Respiratory Rate 13 08/29/22 10:58 Blood Pressure 150/86 H 08/29/22 10:58 Pulse Oximetry 100 08/29/22 10:58 Temperature 98.3 F 08/29/22 10:58 Pulse Rate 68 08/29/22 13:34 Respiratory Rate 14 08/29/22 13:34 Blood Pressure 126/83 08/29/22 13:34 Pulse Oximetry 98 08/29/22 13:34 MDM - Dizziness Lab Data Result diagrams: 08/29/22 12:22 08/29/22 12:22 Labs: Lab Results 1
[2022-08-29 12:23] VITALS: BP 141/88; PULSE 75; RESP 15; O2SAT 99
[2022-08-29 12:39] LABS: Basophils Absolute Auto 0.1 K/mm3 (0.0-0.1); Basophils Percent Auto 0.8 % (0.2-1.2); Eosinophils Absolute Auto 0.4 K/mm3 (0-0.3); Eosinophils Percent Auto 4.6 % (0-4.4); Hematocrit 37.5 % (42.0-52.0); Immature Granulocyte Absolute 0.03 K/mm3 (0.00-0.031); Immature Granulocyte Percent A 0.4 % (0-0.5); Lymphocytes Absolute Auto 1.25 K/mm3 (0.9-3.2); Mean Corpuscular HGB Conc 34.7 g/dl (32-36); Mean Corpuscular Hemoglobin 32.9 pg (26-34); Mean Corpuscular Volume 94.9 fl (80-100); Mean Platelet Volume 8.3 fl (7.4-10.4); Monocytes Absolute Auto 0.6 K/mm3 (0.1-0.6); Monocytes Percent Auto 7.8 % (2.6-8.5); Neutrophils Absolute Auto 5.5 K/mm3 (1.3-6.7); Neutrophils Percent Auto 70.4 % (45.5-73.1); Platelet Count Result 212 k/mm3 (150-375); Red Blood Count 3.95 M/mm3 (4.6-6.20); Red Cell Distribution Width 13.6 % (11.5-14.5); White Blood Count 7.8 K/mm3 (4.5-10.0)
[2022-08-29 12:40] LABS: Alanine Aminotransferase 20 U/L (6-50); Albumin Level 4.6 g/dL (3.5-5.1); Alkaline Phosphatase 74 U/L (38-126); Anion Gap 11 mmol/L (8-16); Aspartate Amino Transferase 32 U/L (17-59); Bilirubin,Total 1.2 mg/dL (0.2-1.3); Blood Urea Nitrogen 17 mg/dL (9-20); Calcium 8.6 mg/dL (8.4-10.2); Carbon Dioxide 25 mmol/L (22-30); Chloride 103 mmol/L (98-107); Estimated CRCL calculation 127 ml/min; Estimated Glomerular Filt Rate > 60; Glucose 108 mg/dL (65-110); Potassium 3.6 mmol/L (3.4-5.0); Sodium 139 mmol/L (137-145)
[2022-08-29 13:34] VITALS: BP 126/83; PULSE 68; RESP 14; O2SAT 98
== END 2022-08-29 13:35 | disposition home or self-care (01) ==
PROVIDERS: Emergency Provider Emergency Medicine; PCP Family Medicine
DX: F41.9 Anxiety disorder, unspecified (principal)
CPT/HCPCS: 36415; 80053; 85025; 93005; 99283

== ENCOUNTER 2022-11-20 00:13 | Emergency (ER) | payer OTHER, SELFPAY ==
[2022-11-20] VITALS (16 sets, daily range): BP systolic 118–152; BP diastolic 44–88; PULSE 66–82; RESP 14–24; TEMP 36.8; O2SAT 95–100
--- NOTE | ~2022-11-20 | CT_ITS ---
CT Abdomen and Pelvis with contrast. History: Abdominal pain. Spiral CT of the abdomen and pelvis was performed after the administration of intravenous contrast. 1 00 cc of Omnipaque 350 was administered intravenously without complication. Dose reduction technique was used on this scan by utilizing automated exposure control and iterative reconstruction technique. The dose-length product (DLP) was 478.72 mGy-cm. COMPARISON: 05/19/2022 Findings: Scans through the lung bases demonstrate mild atelectatic change. The liver, spleen, pancreas, gallbladder, adrenals and kidneys are within normal limits. No evidence of aortic aneurysm. No lymphadenopathy is seen. There is no evidence of bowel obstruction. There is no evidence to suggest acute appendicitis or dive rticulitis. Images through the pelvis were performed. Urinary bladder unremarkable. Prostate gland and seminal ve sicles are unremarkable. No ascites is seen. Bilateral L5 pars interarticularis defects are present w ith minimal grade 1 anterolisthesis of L5 over S1. Impression: No acute abnormalities seen. Chronic bilateral L5 pars interarticularis defects, with minimal grade 1 anterolisthesis of L5 over S 1. Reviewed, dictated and finalized at location . [employer] Impression: No acute abnormalities seen. Chronic bilateral L5 pars interarticularis defects, with minimal grade 1 belen listhesis of L5 over S1.
[2022-11-20 00:52] LABS: Basophils Absolute Auto 0.1 K/mm3 (0.0-0.1); Basophils Percent Auto 0.5 % (0.2-1.2); Eosinophils Absolute Auto 0.4 K/mm3 (0-0.3); Eosinophils Percent Auto 3.2 % (0-4.4); Hematocrit 36.6 % (42.0-52.0); Hemoglobin 12.6 g/dL (14.0-18.0); Immature Granulocyte Absolute 0.05 K/mm3 (0.00-0.031); Immature Granulocyte Percent A 0.4 % (0-0.5); Lymphocytes Absolute Auto 2.03 K/mm3 (0.9-3.2); Lymphocytes Percent Auto 15.6 % (18.3-44.2); Mean Corpuscular HGB Conc 34.4 g/dl (32-36); Mean Corpuscular Hemoglobin 31.3 pg (26-34); Mean Platelet Volume 8.6 fl (7.4-10.4); Monocytes Percent Auto 7.4 % (2.6-8.5); Neutrophils Absolute Auto 9.5 K/mm3 (1.3-6.7); Neutrophils Percent Auto 72.9 % (45.5-73.1); Platelet Count Result 217 k/mm3 (150-375); Red Blood Count 4.02 M/mm3 (4.6-6.20); Red Cell Distribution Width 12.7 % (11.5-14.5)
--- NOTE | 2022-11-20 01:00 | ED.GENADULT ---
HPI - General Adult General Chief complaint: Abdominal Pain Stated complaint: abdominal pain Time Seen by Provider: 11/20/22 00:53 History of Present Illness HPI narrative: 47-year-old male presented to the emergency department for evaluation of lower abdominal pain. Patient states he had been having some issues with constipation but did take some laxatives and used an enema. Patient reports that he had a very large bowel movement and then began having intense lower abdominal pain. Patient does have a previous surgical history of an appendectomy at age 12. Related Data Allergies Allergy/AdvReac Type Severity Reaction Status Date / Time hydrocodone Allergy Unknown ITCHING Verified 11/20/22 01:03 ALL OVER alcohol Allergy Rash Verified 11/20/22 01:03 Review of Systems Review of Systems: CONSTITUTIONAL: Denies fever, chills, or sweats. EYES: Denies visual changes, redness, or discharge. ENT: Denies rhinorrhea, congestion, sore throat, or otalgia. CARDIOVASCULAR: Denies chest pain, palpitations, or edema. RESPIRATORY: Denies cough or dyspnea. GASTROINTESTINAL: See HPI GENITOURINARY: Denies dysuria or hematuria. SKIN: Denies rash or itching. MUSCULOSKELETAL: Denies back pain, joint pain, or myalgia. NEUROLOGIC: Denies headache, numbness, or weakness. [facility] Past Medical History Medical History (Updated 11/21/22 @ 00:01 by Jenaro Savage) Anxiety Surgical History Surgical History Hx of appendectomy Family History Family History (Updated 04/02/22 @ 07:26 by Mile Maynard MA) Father Cancer Mother Alcohol abuse Social History Social History Smoking status: Smoker, status unknown Alcohol intake: current Alcohol use details: Pt has a hx of EtOH abuse. Substance use: current Substance use type: does not use Last use: 09/28/19 Gender identity (if verbalized by the patient): Male Exam Narrative: APPEARANCE: Well appearing, no pain, no distress, well-nourished. HEAD: normocephalic, atraumatic. EYES: PERRLA/EOMI, conjunctivae clear. NOSE: Normal no drainage NECK: Supple. No adenopathy, no masses. RESPIRATORY: Airway patent, respirations nonlabored. Clear to auscultation bilaterally, no rales, rhonchi, wheezing. CARDIOVASCULAR: Regular rate and rhythm without murmurs rubs or gallops. ABDOMINAL: Soft, nontender, nondistended, normal bowel sounds MUSCULOSKELETAL: Moves all extremities. Strength/ROM intact, No edema, No calf tenderness. NEURO: Alert. Cranial nerves II through XII intact. Grossly intact SKIN: Warm, dry. Normal Color Course Course Emergency Course: CT scan was ordered due to the patient complaining of intense abdominal pain. Patient's pain was improved with treatment of IV fluids and pain medications. Patient was able to urinate greater than 500 mL. Post void residual showed 32 mL of retained urine. Patient is afebrile with a leukocytosis of 13.0. Patient's electrolytes are similar to his baseline. No evidence of urinary tract infection. Patient's symptoms started after having a large bowel movement. No etiology to explain the patient's symptoms was seen on the CT scan. On reexamination patient has no abdominal tenderness to palpation. Differential diagnosis did include enteritis, small bowel obstruction, bowel ischemia, colitis. Vital Signs Vital signs: Vital Signs Temperature 98.3 F 11/20/22 00:17 Pulse Rate 68 11/20/22 00:17 Respiratory Rate 22 H 11/20/22 00:17 Blood Pressure 127/44 L 11/20/22 00:17 Pulse Oximetry 100 11/20/22 00:17 Oxygen Delivery Room Air 11/20/22 00:17 Temperature 98.3 F 11/20/22 00:17 Pulse Rate 71 11/20/22 04:00 Respiratory Rate 20 11/20/22 04:00 Blood Pressure 152/83 H 11/20/22 04:12 Pulse Oximetry 95 11/20/22 02:51 Oxygen Delivery Room Air 11/20/22 00:17 Medical Decision Making Vi
[2022-11-20] MEDS: SODIUM CHLORIDE 0.9% IV 1,000 ML 999 ML IV CONT (01:03)
[2022-11-20] MEDS: ONDANSETRON INJ 4 MG/2 ML VIAL IV PUSH (01:05)
[2022-11-20 01:07] LABS: Alanine Aminotransferase 17 U/L (6-50); Albumin Level 4.6 g/dL (3.5-5.1); Alkaline Phosphatase 72 U/L (38-126); Anion Gap 9 mmol/L (8-16); Aspartate Amino Transferase 24 U/L (17-59); Bilirubin,Total 0.5 mg/dL (0.2-1.3); Blood Urea Nitrogen 17 mg/dL (9-20); Carbon Dioxide 25 mmol/L (22-30); Chloride 101 mmol/L (98-107); Estimated CRCL calculation 98 ml/min; Estimated Glomerular Filt Rate > 60; Glucose 116 mg/dL (65-110); Lipase 145 U/L (23-300); Sodium 135 mmol/L (137-145)
[2022-11-20] MEDS: fentaNYL CITRATE INJ (*CRX) 100 MCG/2 ML VIAL IV PUSH ×2 (01:15→02:32)
[2022-11-20] MEDS: ALBUTEROL SULFATE NEB 2.5 MG/3 ML INH 5 MG INHALATION (01:16)
[2022-11-20] MEDS: LORazepam INJ (*CRX) 2 MG/ML VIAL 1 MG IV PUSH (01:41)
[2022-11-20 01:44] LABS: INR 0.9; Prothrombin Time 12.1 Seconds (11.1-14.7)
[2022-11-20 01:45] LABS: Partial Thromboplastin Time 28.9 SECONDS (22.3-36.8)
[2022-11-20 02:23] LABS: Add Urine Microscopic? YES; Appearance Urine Clear (Clear); Bilirubin Urine Negative (Negative); Blood Urine Negative (Negative); Color Urine Yellow (Yellow); Glucose Urine UA Negative (Negative); Ketones Urine 1+ mg/dL (Negative); Leukocyte Esterase Ur Negative LEU/UL (Negative); Nitrate Urine Negative (Negative); Protein Urine Negative (Negative); Specific Grav Ur 1.015 (1.001-1.035); Urobilinogen Urine 0.2 mg/dL (<2.0); pH Urine 8.5 (5.0-9.0)
[2022-11-20 02:46] LABS: Bacteria Urine Trace /hpf; Squamous Epithelial Cell Urine Rare /hpf (Few); WBC Urine 0-3 /hpf
[2022-11-20] MEDS: BELLADONNA ALK/PHENOB ELIX 10 ML, MAG HYDROX/ALUMINUM HYD/SIMETH 30 ML, LIDOCAINE HCL 2... PO (04:16)
== END 2022-11-20 04:16 | disposition home or self-care (01) ==
PROVIDERS: Emergency Provider Emergency Medicine; PCP Family Medicine
DX: R10.30 Lower abdominal pain, unspecified (principal); F41.9 Anxiety disorder, unspecified
CPT/HCPCS: 36415; 74177; 80053; 81001; 83690; 85025; 85610; 85730; 86850; 86900; 86901; 94640; 96361; 96374; 96375; 96376; 99284; A9270; J2060; J2405; J3010; J7030; Q9967

== ENCOUNTER 2023-02-07 01:18 | Emergency (ER) | payer OTHER, SELFPAY ==
--- NOTE | ~2023-02-07 | XR_ITS ---
EXAMINATION: XR chest 2V DATE: 02/07/2023 02:43 INDICATION: Chest and epigastric pain TECHNIQUE: Frontal view of the chest is obtained on two radiographs. COMPARISON: 07/16/2021 FINDINGS: The lungs are free of acute opacities. No pleural effusion or pneumothorax. The cardiomedia stinal silhouette is normal. The visualized bones and soft tissues are unremarkable. IMPRESSION: 1. No acute cardiopulmonary abnormality. Reviewed, dictated and finalized at [facility].
--- NOTE | ~2023-02-07 | CT_ITS ---
EXAMINATION: CT abdomen pelvis w con INDICATION: Epigastric pain, nausea and vomiting TECHNIQUE: Computed tomographic images of the abdomen and pelvis were obtained after the administrati on of 100 cc of Omnipaque 350 intravenous contrast. The dose-length product (DLP) was 452.65 mGy-cm. Automated exposure control and iterative reconstruction technique were employed. COMPARISON: 11/20/2022 FINDINGS: The lung bases are clear. The heart size is normal. The liver, spleen, pancreas, gallbladde r, and adrenal glands are normal. The kidneys are unremarkable. No pathologically enlarged abdominal or pelvic lymph nodes are identified. No free intraperitoneal gas or evidence of bowel obstruction. A moderate volume of colonic stool is present. There are bilateral L5 pars defects with grade 1 belen listhesis of L5 on S1. IMPRESSION: 1. No CT correlate for the patient's symptoms. Reviewed, dictated and finalized at [facility].
[2023-02-07 01:25] VITALS: BP 131/69; PULSE 90; RESP 18; TEMP 36.6; O2SAT 99
--- NOTE | 2023-02-07 01:33 | ECG_ITS ---
Measurements Intervals [place] Rate: 61 P: 41 ND: 149 QRS: 25 QRSD: 101 T: 39 QT: 457 QTc: 461 Interpretive Statements SINUS RHYTHM WITH SINUS ARRHYTHMIA BASELINE WANDER- II, III, AVR, AVL, AVFF, V4-V6 NORMAL ECG COMPARED TO ECG 08/29/2022 12:20:26 SINUS ARRHYTHMIA NOW PRESENT Electronically Signed On 02-07-2023 8:23:51 CDT by Poli Anna D.O.
--- NOTE | 2023-02-07 01:42 | ED.NAVMDI ---
HPI - Nausea/Vomiting/Diarrhea General Chief complaint: Nausea/Vomiting/Diarrhea <MELODY Jeter Last Filed: 02/07/23 03:25> Stated complaint: abd pain, vomiting <MELODY Jeter Last Filed: 02/07/23 03:25> Time Seen by Provider: 02/07/23 01:23 <MELODY Jeter Last Filed: 02/07/23 03:25> Source: patient, EMS and old records reviewed <MELODY Jeter Last Filed: 02/07/23 03:25> Mode of arrival: EMS <MELODY Jeter Last Filed: 02/07/23 03:25> Limitations: no limitations <MELODY Jeter Last Filed: 02/07/23 03:25> History of Present Illness HPI Narrative: Patient is a 47 y/o male, with a PMHx of cyclic vomiting syndrome and anxiety, who presents to the ED via EMS with multiple complaints. Patient reports having midsternal chest pain since 5 PM tonight. He states pain has been constant. He denies any previous history of similar pain. Around 6 PM tonight, patient developed epigastric abdominal pain, nausea, vomiting. He has had several episodes of emesis since then. Unable to keep anything down. He has not tried anything for symptoms. Patient states he has a history of cyclic vomiting syndrome which only gets better with morphine and Phenergan. Patient is agitated upon arrival, demanding pain medicine before anything else. Specifically demanding morphine and Phenergan. Patient does not currently follow with a GI specialist. He denies any diarrhea, constipation, urinary symptoms, fevers, difficulty breathing. Patient denies EtOH use tonight. He does smoke marijuana. <MELODY Jeter Last Filed: 02/07/23 03:25> Related Data Allergies/Adverse reactions: Allergies Allergy/AdvReac Type Severity Reaction Status Date / Time hydrocodone Allergy Unknown ITCHING Verified 11/20/22 01:03 ALL OVER alcohol Allergy Rash Verified 11/20/22 01:03 <MELODY Jeter Last Filed: 02/07/23 03:25> Review of Systems Review of Systems: CONSTITUTIONAL: Denies fever, chills, or sweats. CARDIOVASCULAR: See HPI. RESPIRATORY: Denies cough or dyspnea. GASTROINTESTINAL: See HPI. GENITOURINARY: Denies dysuria or hematuria. SKIN: Denies rash or itching. MUSCULOSKELETAL: Denies back pain, joint pain, or myalgia. NEUROLOGIC: Denies headache, numbness, or weakness. <Susana Espinosa PA-C - Last Filed: 02/07/23 03:25> All systems reviewed & are unremarkable except as noted in HPI and below <Susana Espinosa PA-C - Last Filed: 02/07/23 03:25> PMFSH Past Medical History Medical History: Medical History Anxiety Cyclic vomiting syndrome <Susana Espinosa PA-C - Last Filed: 02/07/23 03:25> Surgical History Surgical History: Surgical History Hx of appendectomy <Susana Espinosa PA-C - Last Filed: 02/07/23 03:25> Family History Family History: Family History Father Cancer Mother Alcohol abuse <Susana Espinosa PA-C - Last Filed: 02/07/23 03:25> Social History Social History: Social History Smoking status: Smoker, status unknown Alcohol intake: current Substance use: current Substance use type: marijuana Gender identity (if verbalized by the patient): Male <Susana Espinosa PA-C - Last Filed: 02/07/23 03:25> Exam Narrative: GENERAL: Mildly disheveled, agitated, non-toxic, in mild acute distress. HEAD: Normocephalic, atraumatic. NECK: Supple. No adenopathy, no masses. RESPIRATORY: Airway patent, respirations nonlabored. Clear to auscultation bilaterally, no rales, rhonchi, wheezing. CARDIOVASCULAR: Regular rate and rhythm without murmurs, rubs, or gallops. Peripheral pulses 2+ and equal gema
[2023-02-07] MEDS: ONDANSETRON INJ 4 MG/2 ML VIAL IV PUSH (01:44)
[2023-02-07] MEDS: SODIUM CHLORIDE 0.9% IV 1,000 ML 999 ML IV CONT (01:44)
[2023-02-07 01:53] LABS: Basophils Absolute Auto 0.1 K/mm3 (0.0-0.1); Basophils Percent Auto 0.4 % (0.2-1.2); Eosinophils Absolute Auto 0.1 K/mm3 (0-0.3); Eosinophils Percent Auto 0.7 % (0-4.4); Hematocrit 38.6 % (42.0-52.0); Hemoglobin 13.2 g/dL (14.0-18.0); Immature Granulocyte Absolute 0.03 K/mm3 (0.00-0.031); Immature Granulocyte Percent A 0.3 % (0-0.5); Lymphocytes Absolute Auto 1.25 K/mm3 (0.9-3.2); Lymphocytes Percent Auto 11.2 % (18.3-44.2); Mean Corpuscular HGB Conc 34.2 g/dl (32-36); Mean Corpuscular Hemoglobin 32.2 pg (26-34); Mean Corpuscular Volume 94.1 fl (80-100); Mean Platelet Volume 8.6 fl (7.4-10.4); Monocytes Absolute Auto 0.6 K/mm3 (0.1-0.6); Monocytes Percent Auto 5.3 % (2.6-8.5); Neutrophils Absolute Auto 9.1 K/mm3 (1.3-6.7); Neutrophils Percent Auto 82.1 % (45.5-73.1); Platelet Count Result 236 k/mm3 (150-375); Red Cell Distribution Width 13.1 % (11.5-14.5); White Blood Count 11.1 K/mm3 (4.5-10.0)
[2023-02-07 02:03] LABS: Ethanol 109 mg/dL (<10)
[2023-02-07 02:04] LABS: Alanine Aminotransferase 21 U/L (6-50); Alkaline Phosphatase 89 U/L (38-126); Anion Gap 15 mmol/L (8-16); Aspartate Amino Transferase 33 U/L (17-59); Bilirubin,Total 0.8 mg/dL (0.2-1.3); Blood Urea Nitrogen 11 mg/dL (9-20); Carbon Dioxide 21 mmol/L (22-30); Chloride 105 mmol/L (98-107); Estimated Glomerular Filt Rate > 60; Glucose 130 mg/dL (65-110); Lipase 341 U/L (23-300); Potassium 3.7 mmol/L (3.4-5.0); Sodium 141 mmol/L (137-145)
[2023-02-07 02:07] LABS: Prothrombin Time 12.9 Seconds (11.1-14.7)
[2023-02-07 02:08] LABS: Partial Thromboplastin Time 29.7 SECONDS (22.3-36.8)
[2023-02-07 02:16] LABS: Troponin I < 0.012 ng/mL (0.000-0.034)
[2023-02-07] MEDS: MORPHINE SULFATE (*CRX) 4 MG/ML INJ IV PUSH (02:45)
[2023-02-07] MEDS: BELLADONNA ALK/PHENOB ELIX 10 ML, MAG HYDROX/ALUMINUM HYD/SIMETH 30 ML, LIDOCAINE HCL 2... PO (02:46)
[2023-02-07] MEDS: PANTOPRAZOLE SODIUM IV 40 MG VIAL IV PUSH (02:46)
[2023-02-07 03:09] LABS: Appearance Urine Cloudy (Clear); Bacteria Urine None Seen /hpf; Bilirubin Urine Negative (Negative); Blood Urine Negative (Negative); Color Urine Yellow (Yellow); Glucose Urine UA Negative (Negative); Ketones Urine 1+ mg/dL (Negative); Leukocyte Esterase Ur Trace LEU/UL (Negative); Nitrate Urine Negative (Negative); Non Pathogenic Casts 0-2; Protein Urine 1+ mg/dL (Negative); Specific Grav Ur 1.029 (1.001-1.035); Squamous Epithelial Cell Urine None seen /hpf (Few); Urobilinogen Urine 0.2 mg/dL (<2.0); WBC Urine 0-5 /hpf; pH Urine >=9.0 (5.0-9.0)
[2023-02-07 03:11] LABS: Amphetamine Screen Urine Negative (Negative); Barbiturate Screen Urine Negative (Negative); Benzodiazepines Screen Urine Negative (Negative); Cannabinoid Screen Urine Positive (Negative); Cocaine Screen Urine Negative (Negative); Methadone Screen Urine Negative (Negative); Opiate Screen Urine Negative (Negative); Phencyclidine Screen Urine Negative (Negative)
[2023-02-07 03:25] LABS: Add Urine Microscopic? YES
[2023-02-07] MEDS: LORazepam INJ (*CRX) 2 MG/ML VIAL 1 MG IV PUSH (04:03)
[2023-02-07 05:50] VITALS: BP 136/78; PULSE 84; RESP 18; TEMP 37.2; O2SAT 99
== END 2023-02-07 05:57 | disposition home or self-care (01) ==
PROVIDERS: Physician Assistant; Emergency Provider Emergency Medicine; PCP Family Medicine
DX: R11.15 Cyclical vomiting syndrome unrelated to migraine (principal); R10.13 Epigastric pain
CPT/HCPCS: 36415; 71046; 74177; 80053; 80307; 81001; 83690; 84484; 85025; 85610; 85730; 93005; 96365; 96375; 99284; A9270; C9113; J0131; J2060; J2270; J2405; J7030; Q9967

== ENCOUNTER 2023-04-22 08:15 | Outpatient (CLI) | payer OTHER, SELFPAY ==
[2023-04-22 21:01] LABS: Cholesterol 161 mg/dL (0-200); HDL Direct 69 mg/dL; Triglycerides 57 mg/dL (<150)
[2023-04-22 21:12] LABS: Iron 93 ug/dL (49-181); LDL Cholesterol Direct 75 mg/dL
[2023-04-22 21:26] LABS: Percent Iron Saturation 30 % (20-50)
[2023-04-22 21:31] LABS: Prostate Specific Antigen 0.8 ng/mL (< OR = 4.0)
[2023-05-01 05:58] LABS: Red Blood Cell Folate 463 ng/mL RBC (>280)
== END 2023-04-22 08:16 | disposition home or self-care (01) ==
PROVIDERS: PCP Family Medicine; Visit Provider Nurse Practitioner
DX: D64.9 Anemia, unspecified (principal); F41.9 Anxiety disorder, unspecified; R11.15 Cyclical vomiting syndrome unrelated to migraine; Z12.5 Encounter for screening for malignant neoplasm of prostate
CPT/HCPCS: 36415; 80061; 82607; 82747; 83540; 83550; 84153; G0103

== ENCOUNTER 2024-01-15 03:10 | Emergency (ER) | payer OTHER, SELFPAY ==
--- NOTE | ~2024-01-15 | CT_ITS ---
CT of the Abdomen and Pelvis: Indication: Abdominal pain Technique: 2.5 mm axial scans were obtained through the abdomen and pelvis following intravenous adm inistration of 100 cc of Omnipaque 350. Dose reduction technique was used on this scan by utilizing a utomated exposure control and iterative reconstruction technique. The dose-length product (DLP) was 6 05.90 mGy-cm. COMPARISON: 02/07/2023 Findings: Scans through the lung bases are unremarkable. The liver, spleen, pancreas, gallbladder, adrenals and kidneys are within normal limits. No evidence of aortic aneurysm. No lymphadenopathy. No bowel obstruction or bowel wall thickening. There is no evidence to suggest acute appendicitis. Images through the pelvis were performed. Urinary bladder unremarkable. No pelvic mass seen. No ascit es. Bilateral L5 pars interarticularis defects are present with mild grade 1 anterolisthesis of L5 ov er S1. Impression: No acute abnormality. Bilateral L5 pars interarticularis defects, as detailed above. Reviewed, dictated and finalized at [facility]. NESS TECHNOLOGY ANALYST Impression: No acute abnormality. Bilateral L5 pars interarticularis defects, as detailed above.
[2024-01-15 03:09] VITALS: BP 119/81; PULSE 64; RESP 22; TEMP 36.4; O2SAT 100
[2024-01-15] MEDS: PROCHLORPERAZINE EDISYLATE 10 MG/2 ML VIAL IV PUSH (03:34)
[2024-01-15] MEDS: HYDROmorphone HCL INJ (*CRX) 1 MG/ML SYR IV PUSH ×2 (03:34→04:39)
[2024-01-15] MEDS: SODIUM CHLORIDE 0.9% IV 1,000 ML 999 ML IV CONT (03:34)
[2024-01-15 03:37] LABS: Basophils Absolute Auto 0.1 K/mm3 (0.0-0.1); Basophils Percent Auto 0.5 % (0.2-1.2); Eosinophils Absolute Auto 0.3 K/mm3 (0-0.3); Eosinophils Percent Auto 2.4 % (0-4.4); Hematocrit 42.1 % (42.0-52.0); Hemoglobin 14.3 g/dL (14.0-18.0); Immature Granulocyte Absolute 0.04 K/mm3 (0.00-0.031); Immature Granulocyte Percent A 0.3 % (0-0.5); Lymphocytes Absolute Auto 1.48 K/mm3 (0.9-3.2); Lymphocytes Percent Auto 12.1 % (18.3-44.2); Mean Corpuscular Hemoglobin 32.1 pg (26-34); Mean Corpuscular Volume 94.6 fl (80-100); Mean Platelet Volume 9.4 fl (7.4-10.4); Monocytes Absolute Auto 0.6 K/mm3 (0.1-0.6); Monocytes Percent Auto 5.2 % (2.6-8.5); Neutrophils Absolute Auto 9.8 K/mm3 (1.3-6.7); Neutrophils Percent Auto 79.5 % (45.5-73.1); Platelet Count Result 220 k/mm3 (150-375); Red Blood Count 4.45 M/mm3 (4.6-6.20); Red Cell Distribution Width 12.6 % (11.5-14.5); White Blood Count 12.3 K/mm3 (4.5-10.0)
[2024-01-15 03:48] LABS: Alanine Aminotransferase 16 U/L (6-50); Albumin Level 4.7 g/dL (3.5-5.1); Alkaline Phosphatase 82 U/L (38-126); Anion Gap 12 mmol/L (8-16); Aspartate Amino Transferase 30 U/L (17-59); Bilirubin,Total 0.6 mg/dL (0.2-1.3); Blood Urea Nitrogen 19 mg/dL (9-20); Calcium 9.6 mg/dL (8.4-10.2); Carbon Dioxide 19 mmol/L (22-30); Chloride 105 mmol/L (98-107); Estimated CRCL calculation 114 ml/min; Estimated Glomerular Filt Rate > 60; Glucose 166 mg/dL (65-110); Lipase 180 U/L (23-300); Potassium 3.5 mmol/L (3.4-5.0); Sodium 136 mmol/L (137-145)
--- NOTE | 2024-01-15 03:52 | ED.GENADULT ---
HPI - General Adult General Chief complaint: Abdominal Pain Stated complaint: ABDOMINAL PAIN Time Seen by Provider: 01/15/24 03:17 History of Present Illness HPI narrative: patient is a 48-year-old gentleman who presents emerged with chief complaint of abdominal pain nausea and epigastric discomfort. The patient reports that he has issues whenever he eats aches it reports the Jaxon wanes it has pain in his epigastric region the patient reports he has been trying to make himself vomit of the patient reports that he cannot get comfortable and reports that ideally he needs Dilaudid and Phenergan. The patient reports that he has no prior intra-abdominal surgeries Related Data Allergies Allergy/AdvReac Type Severity Reaction Status Date / Time hydrocodone Allergy Unknown ITCHING Verified 01/15/24 03:15 ALL OVER alcohol Allergy Rash Verified 01/15/24 03:15 Review of Systems Review of Systems: A 10 system review of systems was completed on the patient and is negative except for what is stated in the HPI. Nursing and ancillary documentation was reviewed. PMFSH Past Medical History Medical History Anxiety Cyclic vomiting syndrome Surgical History Surgical History Hx of appendectomy Family History Family History Father Cancer Mother Alcohol abuse Social History Social History Smoking status: Smoker, status unknown Alcohol intake: current Substance use: current Substance use type: marijuana Lack of Transportation: No Lack of Food: Never True Current Housing: I Have Housing Concerned About Future Housing: No Difficulty Paying Gas/Electric Bills: No Difficulty Paying for Meds: No Currently Unemployed: No Education: Bachelor's Degree Difficulty w/ Childcare or Family Care: No Gender identity (if verbalized by the patient): Male Exam Narrative: GENERAL: Well-appearing, well-nourished, and in no acute distress. HEAD: Normocephalic, atraumatic. EYES: PERRLA and EOMI. ENT: Nares clear, no rhinorrhea or epistaxis. Mucous membranes moist. NECK: Supple. CHEST: Clear to auscultation. No respiratory distress. HEART: Regular rate and rhythm. No murmur heard. Normal peripheral pulses. ABDOMEN: Soft, nontender, nondistended, normal active bowel sounds. EXTREMITIES: Normal range of motion. No edema. SKIN: Warm, dry, no rash. NEURO: No focal deficits. Alert and oriented x3. PSYCH: Normal mood and affect. Course Vital Signs Vital signs: Vital Signs Temperature 36.4 C L 01/15/24 03:09 Pulse Rate 64 01/15/24 03:09 Respiratory Rate 22 H 01/15/24 03:09 Blood Pressure 119/81 01/15/24 03:09 Pulse Oximetry 100 01/15/24 03:09 Oxygen Delivery Room Air 01/15/24 03:09 Temperature 36.4 C L 01/15/24 03:09 Pulse Rate 63 01/15/24 05:29 Respiratory Rate 20 01/15/24 05:29 Blood Pressure 134/79 01/15/24 05:29 Pulse Oximetry 100 01/15/24 05:29 Oxygen Delivery Room Air 01/15/24 03:09 Medical Decision Making [facility] Narrative Medical decision making narrative: differential diagnosis includes generalized anxiety disorder, cyclic vomiting, nausea vomiting, gastroenteritis, bowel perforation, gastritis, diverticulitis, colitis, appendicitis laboratory studies were obtained on the patient which showed no acute abnormalities the patient was hydrated treated with pain medications antiemetics and is starting to feel better. CT scan of the abdomen pelvis showed no acute abnormalities. The patient will be discharged home to follow-up with his primary care provider and was given a prescription for Zofran to Vital Signs Vital Signs: Vital Signs Temperature 36.4 C L 01/15/24 03:09 Pulse Rate 64 01/15/24 03:0
[2024-01-15 04:47] LABS: Appearance Urine Turbid (Clear); Bacteria Urine None Seen /hpf; Bilirubin Urine Negative (Negative); Blood Urine Negative (Negative); Color Urine Yellow (Yellow); Glucose Urine UA Negative (Negative); Ketones Urine 1+ mg/dL (Negative); Leukocyte Esterase Ur Negative LEU/UL (Negative); Nitrate Urine Negative (Negative); Non Pathogenic Casts 0-2; Protein Urine Trace mg/dL (Negative); Specific Grav Ur 1.027 (1.001-1.035); Squamous Epithelial Cell Urine None seen /hpf (Few); Urobilinogen Urine 0.2 mg/dL (<2.0); WBC Urine 0-5 /hpf
[2024-01-15 04:48] LABS: Add Urine Microscopic? YES
[2024-01-15 05:29] VITALS: BP 134/79; PULSE 63; RESP 20; O2SAT 100
== END 2024-01-15 06:20 | disposition home or self-care (01) ==
PROVIDERS: Emergency Provider Emergency Medicine; PCP Nurse Practitioner Adult Health
DX: R10.84 Generalized abdominal pain (principal); R11.2 Nausea with vomiting, unspecified; F41.9 Anxiety disorder, unspecified
CPT/HCPCS: 36415; 74177; 80053; 81001; 83690; 85025; 96361; 96374; 96375; 96376; 99284; J0780; J1170; J7030; Q9967

== ENCOUNTER 2024-04-24 19:37 | Emergency (ER) | payer OTHER, SELFPAY ==
[2024-04-24] VITALS (20 sets, daily range): BP systolic 112–123; BP diastolic 64–71; PULSE 43–60; RESP 13–23; TEMP 36.4; O2SAT 97–100
--- NOTE | 2024-04-24 19:43 | ECG_ITS ---
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 Measurements Intervals [place] Rate: 55 P: 61 AR: 157 QRS: 26 QRSD: 124 T: 30 QT: 504 QTc: 486 Interpretive Statements SINUS BRADYCARDIA OTHERWISE WITHIN NORMAL LIMITS No previous ECG available for comparison Electronically Signed On 04-25-2024 08:09:27 CDT by Vlad Padilla M.D.
[2024-04-24 19:49] LABS: Glucose Point of Care 148 mg/dl (65-105)
[2024-04-24 20:02] LABS: Basophils Absolute Auto 0.1 K/mm3 (0.0-0.1); Basophils Percent Auto 0.6 % (0.2-1.2); Eosinophils Absolute Auto 0.4 K/mm3 (0-0.3); Eosinophils Percent Auto 4.1 % (0-4.4); Hematocrit 38.5 % (42.0-52.0); Hemoglobin 13.5 g/dL (14.0-18.0); Immature Granulocyte Absolute 0.04 K/mm3 (0.00-0.031); Immature Granulocyte Percent A 0.4 % (0-0.5); Lymphocytes Absolute Auto 1.96 K/mm3 (0.9-3.2); Lymphocytes Percent Auto 19.4 % (18.3-44.2); Mean Corpuscular HGB Conc 35.1 g/dl (32-36); Mean Corpuscular Hemoglobin 33.2 pg (26-34); Mean Corpuscular Volume 94.6 fl (80-100); Mean Platelet Volume 8.6 fl (7.4-10.4); Monocytes Absolute Auto 0.6 K/mm3 (0.1-0.6); Neutrophils Percent Auto 69.5 % (45.5-73.1); Platelet Count Result 185 k/mm3 (150-375); Red Blood Count 4.07 M/mm3 (4.6-6.20); Red Cell Distribution Width 12.3 % (11.5-14.5); White Blood Count 10.1 K/mm3 (4.5-10.0)
[2024-04-24] MEDS: LACTATED RINGERS 1,000 ML 999 ML IV CONT (20:02)
--- NOTE | 2024-04-24 20:04 | PC.NURSE ---
Pt is drowsy but easily arousable to voice. Pt a/ox4. Resting comfortably on stretcher.
[2024-04-24 20:13] LABS: Alanine Aminotransferase 14 U/L (6-50); Albumin Level 4.9 g/dL (3.5-5.1); Alkaline Phosphatase 78 U/L (38-126); Anion Gap 11 mmol/L (4-12); Aspartate Amino Transferase 27 U/L (17-59); Bilirubin,Total 0.7 mg/dL (0.2-1.3); Blood Urea Nitrogen 13 mg/dL (9-20); Carbon Dioxide 23 mmol/L (22-30); Chloride 104 mmol/L (98-107); Estimated CRCL calculation 121 ml/min; Estimated Glomerular Filt Rate > 60; Glucose 130 mg/dL (65-110); Potassium 2.8 mmol/L (3.4-5.0); Sodium 138 mmol/L (137-145)
[2024-04-24 20:22] LABS: Troponin I < 0.012 ng/mL (0.000-0.034)
[2024-04-24] MEDS: POTASSIUM CHLORIDE 20 MEQ ER TABLET 40 MEQ PO (20:36)
[2024-04-24] MEDS: POTASSIUM CHLORIDE INJ 40 MEQ in SODIUM CHLORIDE 0.9% IV 500 ML 130 MEQ IVPB (20:58)
--- NOTE | 2024-04-24 22:51 | ED.DIZZY ---
HPI - Dizziness General Chief Complaint: Syncope Stated Complaint: SYNCOPE, BRADYCARDIC Time Seen by Provider: 04/24/24 19:57 History of Present Illness HPI Narrative: Patient was at home with oven, deep fryer, stove going, it was very hot, He had just been outside doing yard work, and overall started to feel kind of woozy, nauseous, diaphoretic, and lightheaded like he was going to pass. He does have history of cyclic vomiting syndrome and hyperhidrosis. Once he was brought here in the ER with air con, he is now feeling much better and denies any symptoms. He never had any chest pain or shortness of breath. Related Data Allergies Allergy/AdvReac Type Severity Reaction Status Date / Time hydrocodone Allergy Unknown ITCHING Verified 04/24/24 19:45 ALL OVER alcohol Allergy Rash Verified 04/24/24 19:45 Review of Systems Review of Systems: All systems reviewed & are unremarkable except as noted in HPI and below PMFSH Past Medical History Medical History Anxiety Cyclic vomiting syndrome Surgical History Surgical History Hx of appendectomy Family History Family History Father Cancer Mother Alcohol abuse Social History Social History (Updated 04/13/24 @ 09:13 by Mile Maynard MA) Smoking status: Smoker, status unknown Alcohol intake: current Substance use: current Substance use type: marijuana Lack of Transportation: No Lack of Food: Sometimes True Current Housing: I Have Housing Concerned About Future Housing: No Difficulty Paying Gas/Electric Bills: No Difficulty Paying for Meds: No Currently Unemployed: No Education: Bachelor's Degree Difficulty w/ Childcare or Family Care: No Gender identity (if verbalized by the patient): Male Exam Narrative: EXAMINATION OF ORGAN SYSTEMS/BODY AREAS: Constitutional: Vital signs per nursing GENERAL:[No acute distress, non-toxic appearing.] HEAD: Normal with no signs of head trauma. EYES: EOMI, conjunctiva normal ENT: Hearing grossly intact LUNGS: Nonlabored breathing. HEART: Bradycardic ABD: [Soft], [nontender to palpation] EXT: Normal range of motion SKIN: [No rashes or lesions.] NEURO: [Alert and oriented x 3. No gross focal sensory or strength deficits.] PSYCH: Normal affect Course Vital Signs Vital signs: Vital Signs Temperature 97.6 F 04/24/24 19:35 Pulse Rate 60 04/24/24 19:35 Respiratory Rate 16 04/24/24 19:35 Blood Pressure 123/66 04/24/24 19:35 Pulse Oximetry 100 04/24/24 19:35 Oxygen Delivery Room Air 04/24/24 19:35 Temperature 97.6 F 04/24/24 19:35 Pulse Rate 46 L 04/24/24 23:15 Respiratory Rate 13 04/24/24 23:15 Blood Pressure 112/71 04/24/24 23:01 Pulse Oximetry 98 04/24/24 23:15 Oxygen Delivery Room Air 04/24/24 20:00 MDM - Dizziness MDM Narrative Medical decision making narrative: Patient presents with presyncope, my differential includes heat exhaustion, ACS or cardiac etiology, dehydration. patient currently asymptomatic and denies any complaint EKG shows sinus bradycardia but no ST elevations or depressions. labs concerning for low potassium, this is repleted. Two sets of troponins are negative. On re-evaluation patient is very well-appearing, denies any complaints, repeat BMP shows normal potassium, I do feel he is stable for discharge at this time with return precautions follow-up to Cardiology patient agreeable to this plan. Lab Data 04/24/24 19:55 04/24/24 23:04 Labs: Lab Results 04/24/24 04/24/24 04/24/24 Range/Units 19:45 19:55 23:04 WBC 10.1 H (4.5-10.0) K/mm3 RBC 4.07 L (4.6-6.20) M/mm3 Hgb 13.5 L (14.0-18.0) g/dL Hct 38.5 L (42.0-52.0) % MCV 94.6 (80-100) fl MCH 33.2 (26-3
[2024-04-24 23:33] LABS: Anion Gap 4 mmol/L (4-12); Blood Urea Nitrogen 11 mg/dL (9-20); Calcium 8.2 mg/dL (8.4-10.2); Carbon Dioxide 26 mmol/L (22-30); Chloride 108 mmol/L (98-107); Estimated CRCL calculation 139 ml/min; Estimated Glomerular Filt Rate > 60; Glucose 113 mg/dL (65-110); Potassium 4.4 mmol/L (3.4-5.0); Sodium 138 mmol/L (137-145)
[2024-04-25 00:11] LABS: Troponin I < 0.012 ng/mL (0.000-0.034)
[2024-04-25 01:01] VITALS: BP 132/79; PULSE 55; RESP 16; TEMP 36.9; O2SAT 97
== END 2024-04-25 01:02 | disposition home or self-care (01) ==
PROVIDERS: Emergency Provider Emergency Medicine; PCP Nurse Practitioner Adult Health
DX: E87.6 Hypokalemia (principal); R55 Syncope and collapse; F41.9 Anxiety disorder, unspecified; R00.1 Bradycardia, unspecified
CPT/HCPCS: 36415; 80048; 80053; 82948; 84484; 85025; 93005; 96361; 96365; 96366; 99284; A9270; J3480; J7040; J7120

== ENCOUNTER 2024-05-09 04:29 | Emergency (ER) | payer OTHER, SELFPAY ==
[2024-05-09 04:28] VITALS: BP 124/77; PULSE 72; RESP 20; TEMP 36.6; O2SAT 97
[2024-05-09 04:44] LABS: Basophils Absolute Auto 0.1 K/mm3 (0.0-0.1); Basophils Percent Auto 0.7 % (0.2-1.2); Eosinophils Absolute Auto 0.5 K/mm3 (0-0.3); Eosinophils Percent Auto 4.4 % (0-4.4); Hematocrit 38.7 % (42.0-52.0); Hemoglobin 13.8 g/dL (14.0-18.0); Immature Granulocyte Absolute 0.04 K/mm3 (0.00-0.031); Immature Granulocyte Percent A 0.4 % (0-0.5); Lymphocytes Absolute Auto 2.85 K/mm3 (0.9-3.2); Lymphocytes Percent Auto 26.6 % (18.3-44.2); Mean Corpuscular HGB Conc 35.7 g/dl (32-36); Mean Corpuscular Hemoglobin 32.7 pg (26-34); Mean Corpuscular Volume 91.7 fl (80-100); Mean Platelet Volume 8.9 fl (7.4-10.4); Monocytes Percent Auto 8.9 % (2.6-8.5); Neutrophils Absolute Auto 6.3 K/mm3 (1.3-6.7); Platelet Count Result 229 k/mm3 (150-375); Red Blood Count 4.22 M/mm3 (4.6-6.20); Red Cell Distribution Width 12.4 % (11.5-14.5); White Blood Count 10.7 K/mm3 (4.5-10.0)
[2024-05-09] MEDS: ONDANSETRON INJ 4 MG/2 ML VIAL IV PUSH (04:51)
[2024-05-09] MEDS: SODIUM CHLORIDE 0.9% IV 2,000 ML 999 ML IV CONT (04:51)
[2024-05-09] MEDS: FAMOTIDINE 20 MG/2 ML VIAL IV PUSH (04:51)
[2024-05-09 04:57] LABS: Alanine Aminotransferase 14 U/L (6-50); Alkaline Phosphatase 78 U/L (38-126); Anion Gap 15 mmol/L (4-12); Aspartate Amino Transferase 26 U/L (17-59); Bilirubin,Total 0.7 mg/dL (0.2-1.3); Blood Urea Nitrogen 17 mg/dL (9-20); Calcium 9.4 mg/dL (8.4-10.2); Carbon Dioxide 18 mmol/L (22-30); Chloride 106 mmol/L (98-107); Estimated CRCL calculation 107 ml/min; Estimated Glomerular Filt Rate > 60; Glucose 153 mg/dL (65-110); Lipase 405 U/L (23-300); Potassium 3.8 mmol/L (3.4-5.0); Sodium 139 mmol/L (137-145)
[2024-05-09] MEDS: HALOPERIDOL LACTATE 5 MG/ML VIAL IM (05:00)
[2024-05-09] MEDS: PROCHLORPERAZINE EDISYLATE 10 MG/2 ML VIAL IV PUSH (05:17)
[2024-05-09] MEDS: diphenhydrAMINE HCl INJ 50 MG/ML VIAL 25 MG IV PUSH ×2 (05:17→05:26)
[2024-05-09] MEDS: LIDOCAINE HCL 2% VISC SOLN 15 ML UDC PO (05:50)
[2024-05-09 05:51] VITALS: BP 128/71; PULSE 67; RESP 14; O2SAT 100
--- NOTE | 2024-05-09 06:22 | ED.GENADULT ---
HPI - General Adult General Chief complaint: Nausea/Vomiting/Diarrhea Stated complaint: n/v x 1 Time Seen by Provider: 05/09/24 04:37 History of Present Illness HPI narrative: this is a 49-year-old male history of cyclic vomiting presented for abdominal pain and nausea vomiting. Patient describes a sharp pain in the epigastric area. He has episodes of nausea vomiting. He has had similar presentation in past. Patient denies fevers chest pain difficulty breathing or urinary symptoms. Related Data Allergies Allergy/AdvReac Type Severity Reaction Status Date / Time hydrocodone Allergy Unknown ITCHING Verified 04/24/24 19:45 ALL OVER alcohol Allergy Rash Verified 04/24/24 19:45 PMFSH Past Medical History Medical History Anxiety Cyclic vomiting syndrome Surgical History Surgical History Hx of appendectomy Family History Family History Father Cancer Mother Alcohol abuse Social History Social History Smoking status: Smoker, status unknown Alcohol intake: current Substance use: current Substance use type: marijuana Lack of Transportation: No Lack of Food: Sometimes True Current Housing: I Have Housing Concerned About Future Housing: No Difficulty Paying Gas/Electric Bills: No Difficulty Paying for Meds: No Currently Unemployed: No Education: Bachelor's Degree Difficulty w/ Childcare or Family Care: No Gender identity (if verbalized by the patient): Male Exam Narrative: APPEARANCE: patient appears uncomfortable Head: atraumatic. EYES: EOMI, NOSE: Atraumatic NECK: Trachea midline RESPIRATORY: No increased rate of breathing clear to auscultation CARDIOVASCULAR: RRR, ABDOMINAL: soft nontender no guarding or rebound MUSCULOSKELETAl: No obvious deformities NEURO: Alert. Moving 4/4 extremities SKIN:: Warm, dry. Normal color PSYCHIATRIC: Normal affect Course Vital Signs Vital signs: Vital Signs Temperature 97.9 F 05/09/24 04:28 Pulse Rate 72 05/09/24 04:28 Respiratory Rate 20 05/09/24 04:28 Blood Pressure 124/77 05/09/24 04:28 Pulse Oximetry 97 05/09/24 04:28 Oxygen Delivery Room Air 05/09/24 04:28 Temperature 97.9 F 05/09/24 04:28 Pulse Rate 67 05/09/24 05:51 Respiratory Rate 14 05/09/24 05:51 Blood Pressure 128/71 05/09/24 05:51 Pulse Oximetry 100 05/09/24 05:51 Oxygen Delivery Room Air 05/09/24 04:28 Medical Decision Making MDM Narrative Medical decision making narrative: -Course: 49-year-old male history of cyclic vomiting presenting for abdominal pain and nausea and vomiting. patient was given symptomatic treatment several rounds of antiemetics with improvement. This time he is tolerating p.o.. I discussed advanced imaging with the patient and he says he has had many CT scans and does not need 1 at this time. Patient will go home and return if his Condition is to worsen. On re-eval Vital signs stable, abdominal exam is still benign. -DDX includes but is not limited to: cyclic vomiting, gastritis, pancreatitis, gallbladder disease -Co-morbidities complicating care: cyclic vomiting -Independent interpretation of studies: white count 10.7. slight acidosis on metabolic panel. -Interventions: 2 L normal saline, Pepcid, Zofran, Haldol, Benadryl, Compazine, viscous lidocaine -Shared decision making / Disposition: discharge Vital Signs Vital Signs: Vital Signs Temperature 97.9 F 05/09/24 04:28 Pulse Rate 72 05/09/24 04:28 Respiratory Rate 20 05/09/24 04:28 Blood Pressure 124/77 05/09/24 04:28 Pulse Oximetry 97 05/09/24 04:28 Oxygen Delivery Room Air 05/09/24 04:28 Temperature 97.9 F 05/09/24 04:28 Pulse Rate 67 05/09/24 05:51 Respiratory Rate 14
[2024-05-09 06:35] LABS: Appearance Urine Turbid (Clear); Bacteria Urine None Seen /hpf; Bilirubin Urine Negative (Negative); Blood Urine Negative (Negative); Color Urine Dark Yellow (Yellow); Glucose Urine UA Negative (Negative); Ketones Urine 1+ mg/dL (Negative); Leukocyte Esterase Ur Negative LEU/UL (Negative); Nitrate Urine Negative (Negative); Non Pathogenic Casts 0-2; Protein Urine Trace mg/dL (Negative); RBC Urine 0-2 /hpf (0-2); Specific Grav Ur 1.015 (1.001-1.035); Squamous Epithelial Cell Urine None Seen /hpf (Few); Urobilinogen Urine 0.2 mg/dL (<2.0); WBC Urine 0-5 /hpf (0-3); pH Urine 8.5 (5.0-9.0)
[2024-05-09 07:04] LABS: Add Urine Microscopic? YES
== END 2024-05-09 06:51 | disposition home or self-care (01) ==
PROVIDERS: Emergency Provider Emergency Medicine; PCP Nurse Practitioner Adult Health
DX: R11.15 Cyclical vomiting syndrome unrelated to migraine (principal)
CPT/HCPCS: 36415; 80053; 81001; 83690; 85025; 96361; 96372; 96374; 96375; 96376; 99284; J0780; J1200; J1630; J2405; J7030

== ENCOUNTER 2025-06-13 13:26 | Outpatient (CLI) | payer OTHER, SELFPAY ==
--- NOTE | ~2025-06-13 | XR_ITS ---
EXAMINATION: XR chest 2V Exam Date/Time: 06/13/2025 13:42 CDT HISTORY: Fever, mid chest pain, abd pain, diarrhea Comparison: 02/07/2023. RESULT: Lines, tubes, and devices: None. Lungs and pleura: Clear. Cardiomediastinal silhouette: Stable. Other: No acute osseous or upper abdominal finding. IMPRESSION: No acute cardiopulmonary process. Reviewed, dictated and finalized at location K.
--- NOTE | ~2025-06-13 | XR_ITS ---
XR abdomen/kub 1V 06/13/2025 16:17 INDICATION: Unspecified abdominal pain TECHNIQUE: KUB COMPARISON: No prior studies for comparison. FINDINGS: There are air-fluid levels in the small bowel and colon, nonspecific. Consider ileus and en terocolitis. There is no evidence of free air, mass, organomegaly, ascites or obstruction. No abnorm al calculi are seen. The bones appear intact. IMPRESSION: 1: Nonspecific air-fluid levels of the bowel. Differential diagnosis includes ileus and enterocolitis . Reviewed, dictated and finalized at location B. IMPRESSION: 1: Nonspecific air-fluid levels of the bowel. Differential diagnosis includes i leus and enterocolitis.
--- OUTSIDE RECORDS SUMMARY | 2025-06-13 13:32 | XMS_ITS | Clinical Summary ---
Author Organization [facility] Collect Address [address] [place] [address] Care Team Providers Care Fisheries Technical Officer Name Role Phone Unavailable Primary Care Provider Unavailabl e Source Comments [facility],non-owned Affiliates and Associated Physician Practices is amultiple site organization consisting of ambulatory clinics and hospital sitesin [place], [place], [place] and [place]. This disclosure is being madepursuant to the Care Everywhere program and may not contain all information available regarding this patient. Last updated 18.[facility] Collect Allergies Active Allergy Reactions Criticality Noted Date Comments Penicillins Skin Reactions 05/25/2020 Peppers GI Discomfort 05/25/2020 Green peppers Meat Extract Other 05/25/2020 vomiting Medications * Be aware that medications may not be up to date on this document. Alwaysverify current medications with the patient. Cyanocobalamin (B-12) 100 MCG Activ e Ascorbic Acid (SOLANGE-C PO) Active PARoxetine (PAXIL) 20 MG tabletIndicatio ns:Medication refill Take 20 mg by mouth once daily Active PARoxetine (PAXIL) 20 MG tablet Take 1 (one) tablet by mouth every morning 30 tablet 3 11/05/2021 Active Active Problems Problem Noted Date Diagnosed Date Alcoholic 03/12/2017 Anxiety 03/12/2017 Chest pain, rule out acute myocardial infarction 03/12/2017 Tobacco abuse 03/12/2017 Social History Tobacco Use Types Packs/Day Years Used Date Smoking Tobacco: Every Day Cigarettes Smokeless Tobacco: Never Tobacco Cessation:Counseling Given: No Sex and Gender Information Value Date Recorded Sex Assigned at Not on file Legal Sex Male 12:58 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 Gender Identity Not on file Sexual Orientation Not on file Last Filed Vital Signs Vital Sign Reading Time Taken Comments Blood Pressure 118/80 11/05/2021 2:38 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 Pulse 68 11/05/2021 2:38 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 Temperature 36.7 C (98 F) 11/05/2021 2:38 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 Respiratory Rate 13 11/05/2021 2:38 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 Oxygen Saturation 97% 11/05/2021 2:38 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 Inhaled Oxygen Concentration - - Weight 90.7 kg (200 lb) 11/05/2021 2:38 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 Height 182.9 cm (6') 11/05/2021 2:38 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 Body Mass Index 27.12 11/05/2021 2:38 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 Plan of Treatment Health Maintenance Due Date Last Done Comments COLOGUARD (AGES 45-75) - COLON CA SCREENING 1975 COLON MONITORING 1975 COLONOSCOPY - COLON CA SCREENING 1975 CT COLONOGRAPHY - COLON CA SCREENING 1975 Colorectal Cancer Screening 1975 FIT - COLON CA SCREENING 1975 FLEX SIG - COLON CA SCREENING 1975 LIPID TESTING 1975 HIV SCREENING 1990 HEPATITIS C SCREENING 02/05/1993 DTAP/TDAP/TD VACCINES (1 - Tdap) 1994 HEPATITIS B VACCINE (1 of 3 - 19+ 3-dose series) 1994 PNEUMOCOCCAL VACCINE 50+ (1 of 2 - PCV) 1994 SCREENING FOR DIABETES 07/24/2023 , 07/24/2020, 09/25/2019, Additional history exists COVID-19 VACCINE ( - 2023- season) 2024 DEPRESSION SCREENING 11/16/2024 ZOSTER VACCINE (1 of 2) 2025 INFLUENZA VACCINE (#1) 2025 HIB VACCINE Aged Out No longer eligi ble based on patient's age to complete this topic HPV VACCINE Aged Out No longer eligi ble based on patient's age to complete this topic MENINGOCOCCAL (Group B) VACCINE SHARED DECISION-MAKING Aged Out No longer eligible based on patient's age to complete this topic MENINGOCOCCAL GROUPS A/C/Y/W VACCINE Aged Out No longer eligible based on patient's age to complete this topic Insurance MEDICAID - OUT OF STATE [facility] [place] [address] [facility]
--- OUTSIDE RECORDS SUMMARY | 2025-06-13 13:32 | XMS_ITS | Referral Summary ---
Author Organization [facility] Address [address] [place] [address] Care Team Providers Care Construction Trench Digger Name Role Phone Fabricio Payne MD Primary Care Provider [phone] Encounters Date Type Department Care Team Description 06/06/2025 4:53 AM CDT - 06/06/2025 7:32 AM CDT Emergency [facility] Emergency Department [address] [place] [address] Irvin Mendez MD Abdominal pain (Primary Dx) Discharge Disposition: Discharge to home or self care from Last 3 Months Allergies No known active allergies Medications PARoxetine (PAXIL) 20 mg tablet Take 1 tablet (20 mg total) by mouth every morning Active pantoprazole DR (PROTONIX) 40 mg EC tablet Take 1 tablet (40 mg total) by mouth daily 30 tablet 09/27/2024 Active Active Problems Problem Noted Date Diagnosed Date Mood disorder 08/09/2024 Assessment & Plan (08/09/2024 3:39 AM CDT): Known hx, chronic, well controlled. Pt reports daily compliance with paroxetine 20 mg. - Continue home paroxetine 20 mg Abdominal pain, epigastric 08/08/2024 Assessment & Plan (08/09/2024 3:37 AM CDT): Cyclic vomiting syndrome 08/08/2024 Assessment & Plan (08/09/2024 3:37 AM CDT): Known hx, chronic. Typically well controlled; only experiences episodes yearly; Pt reports 1x occurrence of emesis after arriving at work and consuming water/coffee (non bloody, non bilious). CT abdomen reveals no acute intraabdominal process, no tenderness on palpation to PE. Pt is reporting resolution of symptoms and is requesting to eat/go home. Counseled re: taking medications on an empty stomach can cause irritation and n/v. Reports that flare-ups usually are associated with multiple episodes of emesis; since he only experienced 1 episode of vomiting, likely that he simply experienced gastric irritation due to swallowing his morning medications on an empty stomach (especially aspirin). - GI consulted; recs are below - CLD and advance as tolerated - Zofran as needed for symptomatic control - Marijuana and smoking cessation - If able to tolerate diet tomorrow then okay to discharge from GI standpoint - Can follow up with GI outpatient if needed Social History Tobacco Use Types Packs/Day Years Used Date Smoking Tobacco: Some Days Smokeless Tobacco: Never Alcohol Use Standard Drinks/Week Comments Yes 0 (1 standard drink = 0.6 oz pur e alcohol) Personal Safety Answer Date Recorded Have you ever been in or are you currently in a harmful physical or emotional relationship or is someone making you feel afraid or unsafe? 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 Gender Identity Not on file Sexual Orientation Not on file Last Filed Vital Signs Vital Sign Reading Time Taken Comments Blood Pressure 135/70 06/06/2025 7:00 AM CDT Pulse 72 06/06/2025 7:00 AM CDT Temperature 37.3 C (99.2 F) 06/06/2025 4:51 AM CDT Respiratory Rate 16 06/06/2025 4:51 AM CDT Oxygen Saturation 100% 06/06/2025 7:00 AM CDT Inhaled Oxygen Concentration - - Weight 99.8 kg (220 lb) 06/06/2025 4:51 AM CDT Height 185.4 cm (6' 1) 06/06/2025 4:51 AM CDT Body Mass Index 29.03 06/06/2025 4:51 AM CDT Plan of Treatment Not on file Procedures Procedure Name Priority Date/Time Associated Diagnosis Comments CT ABDOMEN PELVIS W CONTRAST ED 06/06/2025 6:03 AM CDT EGFR STAT 06/06/2025 5:04 AM CDT DIFFERENTIAL AUTO STAT 06/06/2025 5:0 4 AM CDT COMPREHENSIVE METABOLIC PANEL STAT 06/06/2025 5:04 AM CDT CBC WITH AUTO DIFFERENTIAL STAT 06/06/2025 5:04 AM CDT from Last 3 Months Results * CT Abdomen Pelvis W Contrast (06/06/2025 6:03 AM CDT) Anatomical Region Laterality Modality Body N/A Computed Tomogra phy 06/06/2025 6:05 AM CDT Narrative 06/06/2025 6:10 AM CDT EXAM DESCRIPTION: CT ABDOMEN PELVIS W CONTRAST REASON FOR STUDY: RLQ abdominal pain Patient states he feels like the right kidney is swollen TECHNIQUE: CT scan of the abdomen and pelvis performed with intravenous and without oral contrast using helical scanning technique with dynamic intravenous contrast injection. Reconstructed coronal and sagittal MPR images reviewed. All images stored on PACS. Automated exposure control was used as a dose optimization technique for this examination. CONTRAST TYPE/DOSE: 75mL of IOVERSOL 350 MG IODINE/ML INTRAVENOUS SYRINGE injected via intravenous COMPARISON: CT of the abdomen and pelvis of September 27, 2024. FINDINGS: LOWER CHEST: The lung bases are clear. LIVER: The liver is normal in attenuation without focal lesion. GALLBLADDER: No stones identified. Normal wall. No evidence of pericholecystic fluid. BILE DUCTS: No intrahepatic or extrahepatic ductal dilatation. PANCREAS: Normal. SPLEEN: No focal lesions. Spleen is normal in size. ADRENALS: Normal. KIDNEYS/URINARY TRACT: No significant cystic or solid masses. No visualized renal or ureteral stones. There is no hydronephrosis or hydroureter. Urinary bladder is unremarkable. VASCULATURE: No acute abnormality seen. No abdominal aortic aneurysm. GI: The stomach appears normal. There is no significant small bowel dilation or visible thickening. No gross colonic abnormalities identified. The appendix is not visualized, however, there are no pericecal inflammatory changes seen to suggest appendicitis. PERITONEUM/MESENTERY: No ascites or free air. LYMPH NODES: There are no enlarged lymph nodes seen by CT size criteria. RETROPERITONEUM: No retroperitoneal abnormalities. REPRODUCTIVE: The prostate and seminal vesicles are unremarkable. MUSCULOSKELETAL: Multilevel degenerative changes are present in the spine. No acute bony abnormalities are seen. There is grade 1 spondylolisthesis secondary to bilateral spondylolysis at L5-S1, unchanged from previous. OTHER: No other abnormality. IMPRESSION: 1. No acute intra-abdominal or pelvic abnormality seen. 2. The appendix is not visualized, however, there are no pericecal inflammatory changes seen to suggest appendicitis. 3. Grade 1 spondylolisthesis secondary to bilateral spondylolysis at L5-S1, unchanged from previous. THIS IS AN ELECTRONICALLY VERIFIED FINAL REPORT 06/06/2025 6:10 AM - Electronically signed by Abbey Ball M.D. SN: SN Report ID: [id number] Reading Location: [place] [address] Procedure Note Abbey Ball MD - 06/06/2025 EXAM DESCRIPTION: CT ABDOMEN PELVIS W CONTRAST REASON FOR STUDY: RLQ abdominal pain Patient states he feels like the right kidney is swollen TECHNIQUE: CT scan of the abdomen and pelvis performed with intravenousand without oral contrast using helical scanning technique with dynamic intravenous contrast injection. Reconstructed coronal and sagittal MPRimages reviewed. All images stored on PACS. Automated exposure control was usedas a dose optimization technique for this examination. CONTRAST TYPE/DOSE: 75mL of IOVERSOL 350 MG IODINE/ML INTRAVENOUSSYRINGE injected via intravenous COMPARISON: CT of the abdomen and pelvis of September 27, 2024. FINDINGS: LOWER CHEST: The lung bases are clear. LIVER: The liver is normal in attenuation without focal lesion. GALLBLADDER: No stones identified. Normal wall. No evidence of pericholecystic fluid. BILE DUCTS: No intrahepatic or extrahepatic ductal dilatation. PANCREAS: Normal. SPLEEN: No focal lesions. Spleen is normal in size. ADRENALS: Normal. KIDNEYS/URINARY TRACT: No significant cystic or solid masses. Novisualized renal or ureteral stones. There is no hydronephrosis or hydroureter. Urinary bladder is unremarkable. VASCULATURE: No acute abnormality seen. No abdominal aortic aneurysm. GI: The stomach appears normal. There is no significant small bowel dilation or visible thickening. No gross colonic abnormalitiesidentified. The appendix is not visualized, however, there are no pericecalinflammatory changes seen to suggest appendicitis. PERITONEUM/MESENTERY: No ascites or free air. LYMPH NODES: There are no enlarged lymph nodes seen by CT size criteria. RETROPERITONEUM: No retroperitoneal abnormalities. REPRODUCTIVE: The prostate and seminal vesicles are unremarkable. MUSCULOSKELETAL: Multilevel degenerative changes are present in thespine. No acute bony abnormalities are seen. There is grade 1 spondylolisthesis secondary to bilateral spondylolysis at L5-S1, unchanged from previous. OTHER: No other abnormality. IMPRESSION: 1. No acute intra-abdominal or pelvic abnormality seen. 2. The appendix is not visualized, however, there are no pericecal inflammatory changes seen to suggest appendicitis. 3. Grade 1 spondylolisthesis secondary to bilateral spondylolysis atL5-S1, unchanged from previous. THIS IS AN ELECTRONICALLY VERIFIED FINAL REPORT 06/06/2025 6:10 AM - Electronically signed by Abbey Ball M.D. SN: Report ID: [id number] Reading Location: [id number] Irvin Mendez MD IMG CT PROCEDURES Final Result * eGFR (06/06/2025 5:04 AM CDT) eGFR >90 >=60 mL/min/1. 73 m2 Comment: Interpretive Data Reference Interval Normal >/= 90 mL/min/1.73m2 Mildly decreased* 60 - 89 mL/min/1.73m2 Mildly to moderately decreased 45 - 59 mL/min/1.73m2 Moderately to severely decreased 30 - 44 mL/min/1.73m2 Severely decreased 15 - 29 mL/min/1.73m2 Kidney Failure < 15 mL/min/1.73m2 *Relative to young adult level Estimated glomerular filtration rate is determined by the 2020 CKD-EPI equation recommended by the National Kidney Foundation (A Unifying Approach to GFR Estimation: Recommendations of the NKF-ASK Task Force on Reassessing the Inclusion of Race in Diagnosing Kidney Disease, JASN 202). The CKD-EPI equation should not be used for patients with unstable renal function and has not been validated in children and those over 70. Current interpretive data was last reviewed 2021. Blood 06/06/2025 5:04 AM CDT 06/06/2025 5:08 AM CDT Irvin Mendez MD LAB BLOOD ORDERABLES Final Res ult [facility] [address] [facility] Department [place] [address] * (ABNORMAL) Differential, auto (06/06/2025 5:04 AM CDT) Neutrophil abs 9.53(H) 1.50 - 6.50 K/cumm Imm gran abs 0.07 0.00 - 0.10 K/cumm [facility] ([place]) Lymphocyte abs 2.04 0.80 - 3.30 K/cumm [facility] ([place]) Monocyte abs 0.94(H) 0.20 - 0.80 K/cumm [facility] ([place]) Eosinophil abs 0.29 0.00 - 0.50 K/cumm [facility] ([place]) Basophil abs 0.05 0.00 - 0.10 K/cumm [facility] ([place]) Neutrophil pct 73.8 % [facility] ([place]) Comment: Interpretive Data Percent cell count reference ranges are not reported, since discordance with absolute values may lead to misinterpretation of CBC data. Current Interpretive Data was last revised on 2018. Imm gran pct 0.5 % [facility] ([place]) Comment: Interpretive Data Percent cell count reference ranges are not reported, since discordance with absolute values may lead to misinterpretation of CBC data. Current Interpretive Data was last revised on 2018. Lymphocyte pct 15.8 % [facility] ([place]) Comment: Interpretive Data Percent cell count reference ranges are not reported, since discordance with absolute values may lead to misinterpretation of CBC data. Current Interpretive Data was last revised on 2018. Monocyte pct 7.3 % [facility] ([place]) Comment: Interpretive Data Percent cell count reference ranges are not reported, since discordance with absolute values may lead to misinterpretation of CBC data. Current Interpretive Data was last revised on 2018. Eosinophil pct 2.2 % [facility] ([place]) Comment: Interpretive Data Percent cell count reference ranges are not reported, since discordance with absolute values may lead to misinterpretation of CBC data. Current Interpretive Data was last revised on 2018. Basophil pct 0.4 % [facility] ([place]) Comment: Interpretive Data Percent cell count reference ranges are not reported, since discordance with absolute values may lead to misinterpretation of CBC data. Current Interpretive Data was last revised on 2018. Blood 06/06/2025 5:04 AM CDT 06/06/2025 5:08 AM CDT us Irvin Mendez MD LAB BLOOD ORDERABLES Final Res ult [facility] ([place]) 1 [facility] [place] [address] * (ABNORMAL) CBC with auto differential (06/06/2025 5:04 AM CDT) WBC 12.92(H) 3.80 - 9.90 K/cumm Hgb 13.5 13.0 - 17.5 g/dL [facility] ([place]) Hct 38.5(L) 38.9 - 50.3 % [facility] ([place]) Plt 226 150 - 400 K/cumm [facility] ([place]) MPV 8.5(L) 9.1 - 12.3 fL [facility] ([place]) RBC 4.18(L) 4.30 - 5.80 M/cumm [facility] ([place]) MCV 92.1 81.3 - 96.4 fL [facility] MCH 32.3 27.1 - 33.3 pg [facility]) MCHC 35.1 32.3 - 35.7 g/dL [facility]) RDW CV 12.0 11.1 - 14.9 % [facility] RDW SD 41.0 35.7 - 48.1 fL [facility] ([place]) NRBC abs 0.00 0.00 - 0.01 K/cumm [facility] Blood 06/06/2025 5:04 AM CDT 06/06/2025 5:08 AM CDT us Irvin eMndez MD LAB BLOOD ORDERABLES Final Res ult [facility] [address] [facility] [place] [address] * (ABNORMAL) Comprehensive metabolic panel (06/06/2025 5:04 AM CDT) Sodium 136 135 - 145 mmol/L [facility] ([place]) Potassium, pl 3.7 3.3 - 4.9 mmol/L [facility]) Chloride 101 97 - 110 mmol/L [facility]) CO2 22 22 - 32 mmol/L [facility] ([place]) Anion gap 13 2 - 15 mmol/L [facility]) BUN 11 6 - 25 mg/dL [facility]) Creatinine 0.69(L) 0.80 - 1.30 mg/dL [facility] Glucose 104 70 - 199 mg/dL [facility]) Comment: Interpretive Data Fasting glucose >/= 126 mg/dl is diagnostic for diabetes. Fasting is defined as no caloric intake for at least 8 hours. Fasting glucose between 100 mg/dl to 125 mg/dl is diagnostic of prediabetes. In a patient with classic symptoms of hyperglycemia or hyperglycemic crisis, a random glucose >/= 200 mg/dl is diagnostic for diabetes. In the absence of unequivocal hyperglycemia, results should be confirmed by repeat testing. The classification and Diagnosis of Diabetes Diabetes Care 2021; 46: S19-S40. Current interpretive data was last revised 2022. Calcium 8.9 8.5 - 10.3 mg/dL [facility] Bilirubin, total 0.8 0.1 - 1.2 mg/dL [facility] ([place]) Protein, pl 6.9 6.5 - 8.5 g/dL [facility]) Albumin 4.4 3.5 - 5.0 g/dL [facility]) Alk phos 69 40 - 130 Units/L [facility]) ALT 19 7 - 55 Units/L [facility]) AST 22 10 - 50 Units/L [facility]) Blood 06/06/2025 5:04 AM CDT 06/06/2025 5:08 AM CDT us Irvin Mendez MD LAB BLOOD ORDERABLES Final Res ult [facility] ([place]) 1 [facility] [place] [address] from Last 3 [place] [address] [facility] [place] [facility] [place] [facility] Advance Directives For more information, please contact: [phone] * Full Code (Latest Code Status on File) Date Activated Date Inactivated Comments 08/08/2024 2:23 PM 08/09/2024 7:53 AM Care Teams Construction Trench Digger Relationship Specialty Start Date End Date Fabricio Payne MD PCP - General Family Practice 08/08/24
--- OUTSIDE RECORDS SUMMARY | 2025-06-13 13:32 | XMS_ITS | Clinical Summary ---
Author Organization [facility] Address [address] [place] [address] Phone Care Team Providers Care Design Architect Name Role Phone Fabricio Payne MD Primary Care Provider [phone] Allergies No known active allergies Medications SUPER B COMPLEX/C PO Take 1 Tablet by mouth daily. Active PARoxetine (PAXIL) 20 MG Tablet Take 20 mg by mouth every morning. 2 Active nicotine (NICODERM CQ) 21 MG/24HR PATCH 24 HR 1 Patch by Transdermal route daily as needed for Other (Nicotine dependency). 30 Patch 2 Active hyoscyamine (ANASPAZ, LEVSIN) 0.125 MG Tablet Take 1 Tablet by mouth every 4 hours as needed for Cramping. 120 Tablet 2 Active HYDROcodone-zelalem taminophen (NORCO) 5-325 MG TabletIndicatio ns:Ureteral calculus Take 1 Tablet by mouth every 4 hours as needed for Moderate or more severe pain. 20 Tablet 2 Active dicyclomine (BENTYL) 20 MG Tablet Take 1 Tablet by mouth every 6 hours. 30 Tablet 3 Active ondansetron (ZOFRAN) 4 MG Tablet Take 1-2 Tablets by mouth every 8 hours as needed for Nausea - 1st line. 20 Tablet 3 Active metoclopramide (REGLAN) 10 MG Tablet Take 1 Tablet by mouth 4 times daily as needed for Nausea - 2nd line. 20 Tablet 3 Active clonazePAM (KlonoPIN) 0.5 MG TabletIndicatio ns:Panic attack Take 1 Tablet by mouth 3 times daily as needed for Anxiety. 30 Tablet 3 Active ondansetron (ZOFRAN) 4 MG Tablet Take 1 Tablet by mouth every 8 hours as needed for Nausea - 1st line. 10 Tablet Active Active Problems Problem Noted Date Diagnosed Date Left ureteral calculus 08/28/2022 Ureteral calculus, left 08/20/2022 Hydronephrosis with urinary obstruction due to ureteral calculus 08/20/2022 Depression 08/20/2022 Chest pain, rule out acute myocardial infarction 03/12/2017 Alcoholic 03/12/2017 Tobacco abuse 03/12/2017 Anxiety 03/12/2017 Family History Medical History Relation Name Comments Cancer Father Congestive Heart Failure Mother Heart Attack Mother Stroke Mother Relation Name Status Comments Father Mother Social History Tobacco Use Types Packs/Day Years Used Date Smoking Tobacco: Some Days Cigarettes 0.5 35.3 Started: 03/12/1990 Smokeless Tobacco: Never Tobacco Cessation:Ready to Q uit: Not Asked; Counseling Given: Not Answered Alcohol Use Standard Drinks/Week Comments Not Currently 0 (1 standard drink = 0.6 oz pure alcohol) vodka a lot daily intermittently x 3 years Sex and Gender Information Value Date Recorded Sex Assigned at Male 07/10/2023 6:14 AM CDT Legal Sex Male 12:27 AM CDT Gender Identity Male 07/10/2023 6:14 AM CDT Sexual Orientation Not on file Last Filed Vital Signs Vital Sign Reading Time Taken Comments Blood Pressure 116/68 12/28/2024 12:34 PM SCENE SHIFTER Pulse 67 12/28/2024 12:34 PM SCENE SHIFTER Temperature 36.4 C (97.6 F) 12/28/2024 12:34 PM SCENE SHIFTER Respiratory Rate 18 12/28/2024 12:34 PM SCENE SHIFTER Oxygen Saturation 97% 12/28/2024 12:34 PM SCENE SHIFTER Inhaled Oxygen Concentration - - Weight 113.4 kg (250 lb) 12/28/2024 7:08 AM SCENE SHIFTER Height 185.4 cm (6' 1) 12/28/2024 7:08 AM SCENE SHIFTER Body Mass Index 32.98 12/28/2024 7:08 AM SCENE SHIFTER Plan of Treatment Health Maintenance Due Date Last Done Comments Hepatitis C Virus (HCV) Screening 1975 TdaP Immunization 1975 Pneumococcal Immunization (50+ years) (1 of 2 - PCV) 1994 Hepatitis B Immunization (3 of 3 - 19+ 3-dose series) 07/31/2010 02/28/2010, 01/28/2010 Cologuard 02/11/2020 Colonoscopy 02/11/2020 Colorectal Cancer Screening 02/11/2020 Immunochemical Fecal Occult Blood 02/11/2020 SARS-COV-2 Immunization ( season) 2024 08/31/2021, 08/01/2021 Zoster Immunization (1 of 2) 2025 Influenza Immunization (#1) 2025 09/11/2022 Respiratory Syncytial Virus (RSV) Immunization (Adult) (1 - 1-dose 75+ series) 2050 DTaP/Tdap/Td Immunization Discontinued 1989, 04/19/1980, 09/19/1976, Additional history exists Human Papillomavirus (HPV) Immunization Aged Out No longer eligible based on patient's age to complete this topic Meningococcal Immunization (ACWY) Aged Out No longer eligible based on patient's age to complete this topic Rotavirus Immunization Aged Out No lo nger eligible based on patient's age to complete this topic Insurance MEDICAID [facility] Advance Directives * Full Code (Latest Code Status on File) Date Activated Date Inactivated Comments 08/20/2022 3:36 AM 08/20/2022 4:01 PM CPR-Full Kar atment: FULL ARREST: Attempt Resuscitation/CPR wit intubation and mechanical ventilation. PRE-ARREST: Use entire range of life support measures to stabilize the patient. * Full Code Date Activated Date Inactivated Comments 03/12/2017 2:45 PM 03/13/2017 2:08 PM CPR-Full Kar atment: FULL ARREST: Attempt Resuscitation/CPR wit intubation and mechanical ventilation. PRE-ARREST: Use entire range of life support measures to stabilize the patient. Care Teams Design Architect Relationship Specialty Start Date End Date Fabricio Payne MD [address] [place] [address] PCP - General Family Medicine 03/24/22
[2025-06-13 18:46] LABS: Hematocrit 39.8 % (42.0-52.0); Hemoglobin 13.5 g/dL (14.0-18.0); Immature Granulocyte Percent A 0.4 % (0-0.5); Lymphocytes Absolute Auto 2.20 K/mm3 (0.9-3.2); Mean Corpuscular HGB Conc 33.9 g/dl (32-36); Mean Corpuscular Hemoglobin 32.5 pg (26-34); Mean Corpuscular Volume 95.9 fl (80-100); Nucleated Red Blood Cells Absolute Auto 0.000 K/mm3 (0.0-0.012); Nucleated Red Blood Cells Perc 0.0 % (0.0-0.2); Platelet Count Result 294 k/mm3 (150-375); Red Blood Count 4.15 M/mm3 (4.6-6.20); White Blood Count 11.4 K/mm3 (4.5-10.0)
[2025-06-13 19:38] LABS: Alanine Aminotransferase 16 U/L (6-50); Albumin Level 4.2 g/dL (3.5-5.1); Alkaline Phosphatase 68 U/L (38-126); Amylase 52 U/L (30-110); Anion Gap 10 mmol/L (4-12); Aspartate Amino Transferase 47 U/L (17-59); Bilirubin,Total 0.4 mg/dL (0.2-1.3); Blood Urea Nitrogen 7 mg/dL (9-20); Calcium 9.3 mg/dL (8.4-10.2); Carbon Dioxide 26 mmol/L (22-30); Chloride 103 mmol/L (98-107); Estimated Glomerular Filt Rate > 60; Glucose 91 mg/dL (65-110); Lipase 45 U/L (23-300); Potassium 3.5 mmol/L (3.4-5.0); Sodium 139 mmol/L (137-145); Total Protein 7.2 g/dL (6.3-8.2)
== END 2025-06-13 13:27 | disposition home or self-care (01) ==
LOC: ANHBWCLAB 13:27
PROVIDERS: PCP Nurse Practitioner Adult Health; Visit Provider Nurse Practitioner Adult Health
DX: R19.7 Diarrhea, unspecified (principal); R50.9 Fever, unspecified; R10.9 Unspecified abdominal pain
CPT/HCPCS: 36415; 71046; 74018; 80053; 82150; 83690; 85025